=== PATIENT | male | born 1940 | race Caucasian/White ===

== ENCOUNTER → 2016-06-20 | Day surgery (SDC) | payer OTHER ==
[2016-06-15 08:50] VITALS: Ht 177.8 cm; Wt 90.0 kg
[~2016-06-20] VITALS: Ht 177.8 cm; Wt 90.0 kg
[~2016-06-20] MED LIST: 500ML BSSPLUS 0.5ML EPI1:1000 IRRIG ONE; ACETAMINOPHEN 325 MG TAB PO PRN; ALLO100T PO; AMLO-110 PO; AMLO-114 PO; ASPI81TA28 PO; ATROPINE SULFATE 0.1 MG/ML 5ML SYR IV PRN; ATROPINE SULFATE 1% OP OINT PER APPLICATION CHARGE ONE; AcetylCHOLine CHL OP SOL 1:100 2 ML BTL ONE; BSS FLUSH ONE; BUPIVACAINE HCL 0.75% 10 ML AMP/VIAL ONE; CEFAZOLIN SOD 1 GM VIAL ONE; CHOL1000 PO; DEXAMETHASONE SOD INJ 4 MG/ML VIAL ONE; EpHEDrine SULFATE INJ 50 MG/ML AMP IV PRN; EpINEphrine INJ 1MG/ML AMP 1 MG/ML AMP ONE; FAMO20TA11 PO; FENTANYL CITRATE INJ 50 MCG/1 ML 2 ML VIAL ONE; FLUMAZENIL 0.1 MG/1 ML 10 ML VIAL IV ONE; HYALURONIDASE HUMAN 150 UNIT/ML INJ ONE; INDO-24 PO; INDOCYANINE GREEN 25 MG/10 ML ONE; KFL250 PO; LACTATED RINGER'S 1000ML 500 ML IV SCH; LCTX PO; LIDOCAINE HCL 2% 2 ML VIAL (20MG/ML) ONE; LIDOCAINE MPF 4% INJ INJ ONE; LISI-787 PO; LISI10TA PO; MIDAZOLAM HCL 1 MG/ML 2ML VIAL ONE; MULT-506 PO; NEOMYCIN/POLYMYX/DEXAMETH OP OINT PER APP CHARGE ONE; OCUCOAT 1 ML SOLN IO ONE; PRD/25 PO; PRED20TA PO; PROPARACAINE 0.5% OP SOLN PER DROP CHARGE OPR SCH; PROPOFOL IV EMULSION 10 MG/ML 20 ML VIAL IV ONE; TIMOLOL MALEATE 0.5% OP SOLN PER DROP CHARGE ONE; TRAM-10 PO; TRIAMCINOLONE ACETONIDE OPHTH 40 MG/ML VIAL STERILE IO ONE; VITA1CAP4 PO
[2016-06-20] MEDS: PHENYLEPHRINE HCL 2.5% OP SOLN PER DROP CHARGE OPR SCH ×2 (07:01→07:09)
[2016-06-20] MEDS: TROPICAMIDE 1% OP SOLN PER DROP CHARGE OPR SCH ×2 (07:02→07:10)
--- NOTE | 2016-06-20 08:12 | History & Physical Bridge - SC ---
H&P Re-Evaluation Bridge Note: pt has a macular pucker in the right eye and is here for vitrectomy right eye. I have examined the patient, reviewed the History & Physical and in the interval since the performance of the History & Physical I have noted the following changes of clinical significance: No changes noted
[2016-06-20 09:53] VITALS: TEMP 36.5
--- NOTE | 2016-06-20 09:55 | [facility] Operative Report ---
Operative Report Date of Service Jun 20, 2016. Operative Report PREOPERATIVE DIAGNOSIS: Epiretinal membrane, right eye. ICD10: H35.371 POSTOPERATIVE DIAGNOSIS: same. PROCEDURE: 1. Pars plana vitrectomy, 23 gauge. 2. Membrane peeling of the internal limiting membrane and overlying epiretinal membrane. All to the right eye. CPT CODE: 89309 SURGEON: Kayden Quezada D.O. COMPLICATIONS: None. ESTIMATED BLOOD LOSS: None. SPECIMENS: None. ANESTHESIA: Retrobulbar block and MAC. INDICATIONS FOR PROCEDURE: The patient has an epiretinal membrane that is visually significant. Vitrectomy surgery is indicated to decrease risk of vision loss and potentially improve vision. CONSENT: The risks, benefits and alternatives were discussed with the patient including but not limited to decreased visual acuity, failure to achieve desired results, loss of the eye, infection, pain, glaucoma, lens changes, retinal tears, retinal detachment, the need for more procedures, drooping of the eyelid, blindness, and double vision. The patient is aware of risks and consents to the surgery. Consent is signed and on the chart. OPERATION AND FINDINGS: The patient was brought to the operating room where the patient was identified by name, date, and medical record number. The surgical site was confirmed with the informed written consent. The patient was sedated by the anesthesiology team after which a 50:50 mixture of 4% lidocaine and 0.75% bupivacaine with hyaluronidase was administered in a standard retrobulbar fashion. A total of 4 ml was administered without difficulty. The patient was then prepped and draped in the usual sterile manner for retinal surgery. A wire lid speculum was placed and an Helder 23-gauge trocar cannula system was employed. The temporal phaco wound from cataract surgery started to leak with the placement of the trocars so interrupted 10-0 nylon suture was placed in the phaco wound to stabilize it and the knots were buried. Also the infusion trocar was placed inferior nasally instead of the typical inferior temporal location. It was placed in an angled fashion 3.75mm posterior to the surgical limbus and the infusion cannula was inserted into this cannula after which the intravitreal position was verified prior to turning the infusion on. Two more trocar cannulas were then inserted in an angled fashion, one in the superior temporal, and one in the superior nasal quadrant both 3.75mm posterior to the surgical limbus. A light pipe and vitrector were then introduced into the eye and the BIOM wide angle viewing system was brought into place. Posterior inspection revealed a previously vitrectomized eye with mature laser and there was a thick epiretinal membrane over the macula. Next 0.05ml of indocyanine green was placed over the macular surface to stain the internal limiting membrane. This was washed from the eye after 10 seconds. At this point a flat contact lens was placed on the surface of the eye and a flex scraper and ILM forceps were used to gently peel the internal limiting membrane and overlying epiretinal membrane off of the macular surface without difficulty. At this point scleral depression was performed for 360 degrees and no retinal tears or detachments were noted. Miochol was instilled to make sure no iris was incarcerated in the temporal phaco wound. The trocar cannulas were then removed and 8-0 Vicryl suture was placed in the superior trocar sites. The intraocular pressure was found to be within normal limits by palpation and subconjunctival injections of Kefzol and dexamethasone were administered inferiorly and superiorly. The wire lid speculum was removed. Maxitrol was applied to the surface of the eye. A light patch and shield were taped over the surface of the eye and the patient left the Operating Room in stable condition having tolerated the procedure well. DISPOSITION: The patient has an appointment the following morning in the Ophthalmology Clinic. The patient is to call immediately if there are any problems overnight. I attest to the content of the Intraoperative Record and any orders documented therein. Any exceptions are noted below.
--- NOTE | 2016-06-20 09:55 | Discharge Instructions-SurgCtr ---
Discharge Instructions Date of Service Jun 20, 2016. Visit Reason for Visit: Right Eye Epiretinal Membrane Discharge Discharge Diagnosis / Problem: same Discharge Goals Goal(s): Improve function Activity Recommendations Activity Limitations: per Instructions/Follow-up section Anesthesia . Post Anesthesia Instructions: If you have had General Anesthesia or IV Sedation: * Do not drive today. * Resume driving when surgeon permits. * Do not make important decisions or sign legal documents today. * Call surgeon for: 1. Temperature elevations greater than 101 degrees F. 2. Uncontrollable pain. 3. Excessive bleeding. 4. Persistent nausea and vomiting. 5. Medication intolerance (nausea, vomiting or rash). * For nausea and vomiting use only clear liquids such as: tea, soda, bouillon until nausea subsides, then gradually increase diet as tolerated. * If you have any concerns or questions, call your surgeon's office. If physician is unavailable and it is an emergency, call 911 or go to the nearest emergency room. . Instructions / Follow-Up Instructions / Follow-Up * May take Tylenol if needed for discomfort. * Do NOT remove eye shield. * NO straining, heavy lifting (>15 pounds) or bending below waist. * Avoid getting water or soap directly into operative eye. * Do NOT rub eye. If you experience increasing eye pain not relieved by medication, please contact us immediately at [phone]. If you are unable to reach someone at the above number, call [phone] and ask to speak with the EYE DOCTOR [facility] CELL TENDER. Inform them that you are a Dr. Quezada patient who had recent surgery. Diet Recommendations Home Diet: resume previous diet Procedures Procedures Performed: Right Eye 23 Gauge Vitrectomy With Membrane Peeling Pending Studies Studies pending at discharge: no Medical Emergencies . Who to Call and When: Medical Emergencies: If at any time you feel your situation is an emergency, please call 911 immediately. . Non-Emergent Contact Non-Emergency issues call your: Agriculture Scientist . . "Provider Documentation" section prepared by Kayden Quezada.
--- NOTE | 2016-06-20 10:11 | Anesthesia Progress Nt - [facility] ---
Anesthesia Post Op Note Date & Time Jun 20, 2016 at 10:11 Vital Signs Pain Intensity: 0 Vital Signs Past 12 Hours Date Time Temp Pulse Resp B/P Pulse Ox O2 Delivery O2 Flow Rate FiO2 06/20/16 09:53 36.5 58 12 176/99 99 Room Air 06/20/16 06:48 36.9 64 20 172/90 98 Room Air Notes Mental Status: alert / awake / arousable, participated in evaluation Pt Amnestic to Procedure: Yes Nausea / Vomiting: adequately controlled Pain: adequately controlled Airway Patency, RR, SpO2: stable & adequate BP & HR: stable & adequate Hydration State: stable & adequate Anesthetic Complications: no major complications apparent
[2016-06-20 10:20] VITALS: BP 176/89; PULSE 68; O2SAT 98
== END | disposition home or self-care (01) ==
LOC: X.SURG 06:39
PROVIDERS: ATTEND Ophthalmology
DX: H35.371 Puckering of macula, right eye (principal); I12.9 Hypertensive chronic kidney disease with stage 1 through stage 4 chronic kidney disease, or unspecified chronic kidney disease; N18.3 Chronic kidney disease, stage 3 (moderate)

== ENCOUNTER 2016-10-19 23:44 | Emergency (ER) | payer OTHER ==
[~2016-10-19] VITALS: Ht 177.8 cm; Wt 87.0 kg
[~2016-10-19 23:44] MED LIST changes: -500ML BSSPLUS 0.5ML EPI1:1000 IRRIG ONE; -ACETAMINOPHEN 325 MG TAB PO PRN; -ALLO100T PO; -AMLO-110 PO; -AMLO-114 PO; -ATROPINE SULFATE 0.1 MG/ML 5ML SYR IV PRN; -ATROPINE SULFATE 1% OP OINT PER APPLICATION CHARGE ONE; -AcetylCHOLine CHL OP SOL 1:100 2 ML BTL ONE; -BSS FLUSH ONE; -BUPIVACAINE HCL 0.75% 10 ML AMP/VIAL ONE; -CEFAZOLIN SOD 1 GM VIAL ONE; -CHOL1000 PO; -DEXAMETHASONE SOD INJ 4 MG/ML VIAL ONE; -EpHEDrine SULFATE INJ 50 MG/ML AMP IV PRN; -EpINEphrine INJ 1MG/ML AMP 1 MG/ML AMP ONE; -FAMO20TA11 PO; -FENTANYL CITRATE INJ 50 MCG/1 ML 2 ML VIAL ONE; -FLUMAZENIL 0.1 MG/1 ML 10 ML VIAL IV ONE; -HYALURONIDASE HUMAN 150 UNIT/ML INJ ONE; -INDOCYANINE GREEN 25 MG/10 ML ONE; -KFL250 PO; -LACTATED RINGER'S 1000ML 500 ML IV SCH; -LCTX PO; -LIDOCAINE HCL 2% 2 ML VIAL (20MG/ML) ONE; -LIDOCAINE MPF 4% INJ INJ ONE; -LISI-787 PO; -MIDAZOLAM HCL 1 MG/ML 2ML VIAL ONE; -NEOMYCIN/POLYMYX/DEXAMETH OP OINT PER APP CHARGE ONE; -OCUCOAT 1 ML SOLN IO ONE; -PRD/25 PO; -PRED20TA PO; -PROPARACAINE 0.5% OP SOLN PER DROP CHARGE OPR SCH; -PROPOFOL IV EMULSION 10 MG/ML 20 ML VIAL IV ONE; -TIMOLOL MALEATE 0.5% OP SOLN PER DROP CHARGE ONE; -TRAM-10 PO; -TRIAMCINOLONE ACETONIDE OPHTH 40 MG/ML VIAL STERILE IO ONE; -VITA1CAP4 PO
[2016-10-19 23:52] VITALS: TEMP 36.7; Ht 177.8 cm; Wt 87.0 kg
--- NOTE | 2016-10-20 00:19 | EMERGENCY ROOM VISIT NOTE ---
History Report prepared by Alfredito: James Johns Under the Supervision of: Dr. Negrita Hdez D.O. First contact with patient: 00:00 Chief Complaint: ALLERGIC REACTION Stated Complaint: ALLERGIC REACTION Nursing Triage Summary: pt brought to main ED from home by BLS for allergic reaction. pt was seen at PCP today for "hoarse voice" for three weeks. started on 20mg prednisone and "acid controller" pt took these medications today at 14:30. pt began to experience swollen upper lip around 19:00. pt denies SOB or trouble swallowing. pt denies known allergies. pt has never taken prednisone before. pt is on lisinopril for HTN. upon assessment, pt is alert and oriented x4, breathing regularly and independently. lungs clear in all leal. no throat abnormailty noted. upper lip noted to be swollen, pt states "it feels numb." History of Present Illness The patient is a 76 year old male who presents to the Emergency Room with complaints of worsening swelling and numbness in his upper lip due to an allergic reaction that began at 1900, 5 hours prior to arrival. The patient states that he visited with his primary care physician today to be evaluated for a "hoarse voice" that he has had for the past three weeks. His PCP prescribed him prednisone and Acid Reflux medication. The patient notes that he took his first dosage at 1430 and another dosage at 1600 this afternoon. The swelling and numbness of the upper lip then began at roughly 1900. The patient denies any itching, and has no history of allergic reactions. He is currently on Lisinopril once per day. Source of History: patient Onset: 5 hours prior to arrival Position: lip (Upper ) Quality: other (Swelling (reaction)) Timing: worsening Associated Symptoms: + numbness ((upper lip)) Note: Patient denies itching Review of Systems See HPI for pertinent positives & negatives. A total of 10 systems reviewed and were otherwise negative. Past Medical & Surgical Medical Problems: (1) Hypertension Hypertension Family History Hypertension Kidney stones Social History Smoking Status: Never Smoker Marital Status: Housing Status: lives with significant other Occupation Status: retired Current/Historical Medications Scheduled Allopurinol (Zyloprim), 100 MG PO DAILY Amlodipine (Norvasc), 5 MG PO DAILY Aspirin (Aspirin Ec), 81 MG PO QAM Cholecalciferol (Vitamin D3), 1,000 UNITS PO DAILY Famotidine (Pepcid), 20 MG PO BID Lisinopril/Hctz (Zestoretic 20MG/12.5MG), 1 TAB PO DAILY Multivitamin (Multivitamin), 1 TAB PO QAM Prednisone (Prednisone), 20 MG PO DAILY/UD Allergies Coded Allergies: No Known Allergies (Verified , 06/20/16) Physical Exam Vital Signs Date Time Temp Pulse Resp B/P (MAP) Pulse Ox O2 Delivery O2 Flow Rate FiO2 10/20/16 02:22 67 18 120/73 96 10/20/16 01:52 68 18 163/88 95 Room Air 10/19/16 23:57 81 10/19/16 23:52 36.7 84 18 163/88 97 Room Air 10/19/16 23:52 97 Room Air Physical Exam HEENT: Head - normocephalic and atraumatic Pupils are equal, round, and reactive to light. Extraocular eye muscles are intact, and sclera are anicteric. Nose - moist nasal mucosa without discharge. Mouth - The patient' s upper lip was swollen, left being larger than the right. moist buccal mucosa. Oropharynx is nonerythematous and there is no tonsillar exudate or edema noted. There is no uvular edema. Neck: Supple; no auscultated stridor. Heart: Regular rate and rhythm. There is a normal S1 and S2 with no murmurs, clicks, or gallops appreciated. Lungs: Clear to auscultation bilaterally with no wheezes, rales, or rhonchi. Abdomen: Soft, completely nontender, nondistended, with good bowel sounds. There are no palpable pulsatile masses or hepatosplenomegaly. There is no guarding, rigidity, or rebound noted. Extremities: No evidence of cyanosis, clubbing, or edema. There are easily palpable peripheral pulses. Skin: warm and dry with good turgor and no rashes. Medical Decision & Procedures Medications Administered Medications (Trade) Dose Ordered Sig/Radha Route Start Time Stop Time Status Last Admin Dose Admin Diphenhydramine HCl (Benadryl Cap) 50 mg NOW ONCE PO 10/20/16 00:30 10/20/16 00:31 DC 10/20/16 00:31 50 MG Procedure Medications Ordered: Benadryl ED Course 0007: Past medical records reviewed. The patient was evaluated in room B8. A complete history and physical exam was performed. 0030: Ordered Benadryl 50 mg PO. An ice pack was applied to the upper lip. 0154: Upon reevaluation, the patient is comfortable in bed, he feels as though the swelling in his lip has receded slightly. I discussed findings and results with him. He verbalized agreement of the treatment plan. The patient was discharged home. Medical Decision The patient is a 76 year old male who presents to the Emergency Department for upper lip swelling and numbness. Differential Diagnosis includes; angioedema, drug reactions, and allergic reaction. Blood Pressure Screening: Patient was found to have a slightly elevated blood pressure due to circumstances. I attest that I have personally reviewed the patient's current medication list. This is a 76 showed male patient who presents emergency Department with swelling to his upper lip. It seems the patient is suffering from acute angioedema most likely secondary to his lisinopril. The initial symptoms he experienced earlier today may have been secondary to the start of angioedema. I 've encouraged the patient to stop taking the LANDY inhibitor and follow up with his PCP with regards to blood pressure control. As for the prednisone, he can continue this and may also use Benadryl. He was instructed that if he developed any worsening swelling to his lips or tongue that he should return to the emergency department. Impression Primary Impression: Angioedema Scribe Attestation The scribe's documentation has been prepared under my direction and personally reviewed by me in its entirety. I confirm that the note above accurately reflects all work, treatment, procedures, and medical decision making performed by me. Departure Information Dispostion Home / Self-Care Referrals Luisito Smith M.D. (PCP) Forms HOME CARE DOCUMENTATION FORM, IMPORTANT VISIT INFORMATION Patient Instructions My [facility] Additional Instructions Stop the Lisinopril Rest with your head elevated Benadryl - 50mg every 6 hours today You can continue steroids Follow up with PCP about blood pressure
[2016-10-20] MEDS ORDERED: FAMO20TA11 PO (00:54)
[2016-10-20] MEDS ORDERED: ALLO100T PO (00:55)
[2016-10-20] MEDS ORDERED: AMLO-110 PO (00:56)
[2016-10-20] MEDS ORDERED: LISI-787 PO (00:57)
[2016-10-20] MEDS ORDERED: CHOL1000 PO (00:58)
[2016-10-20] MEDS ORDERED: PRED20TA PO (00:59)
[2016-10-20 02:22] VITALS: BP 120/73; PULSE 67; O2SAT 96
[2016-11-11] MEDS ORDERED: PRD/25 PO (18:37)
[2016-11-12] MEDS ORDERED: KFL250 PO (12:06)
[2016-11-12] MEDS ORDERED: LCTX PO (12:06)
[2016-11-17] MEDS ORDERED: VITA1CAP4 PO (08:53)
[2016-11-17] MEDS ORDERED: TRAM-10 PO (08:53)
== END 2016-10-20 02:22 | disposition home or self-care (01) ==
LOC: EDBD 23:44 → C.EDB 23:45
DX: T78.3XXA Angioneurotic edema, initial encounter (principal); X58.XXXA Exposure to other specified factors, initial encounter; I10 Essential (primary) hypertension; Z79.82 Long term (current) use of aspirin; Z82.49 Family history of ischemic heart disease and other diseases of the circulatory system; Z84.1 Family history of disorders of kidney and ureter

== ENCOUNTER 2016-11-09 10:50 | Observation (INO) | payer OTHER ==
[~2016-11-09] VITALS: Ht 177.8 cm; Wt 81.0 kg
[~2016-11-09 10:50] MED LIST changes: +ALLO100T PO; +AMLO-110 PO; +CHOL1000 PO; +FAMO20TA11 PO; -INDO-24 PO; +LISI-787 PO; -LISI10TA PO; +PRED20TA PO
[2016-11-09] MEDS ORDERED: SODIUM CHLORIDE 0.9% 1000ML 1,000 ML IV STA (11:12)
--- NOTE | 2016-11-09 11:21 | EMERGENCY ROOM VISIT NOTE ---
History First contact with patient: 11:06 Chief Complaint: FOOT PAIN Stated Complaint: SWOLLEN RIGHT FOOT History of Present Illness The patient is a 76 year old male who presents to the Emergency Room for evaluation of right foot swelling. Notes 3 days increasing right foot swelling , pain and erythema. Associated with fevers and not feeling well. No other symptoms. Nothing makes better. Walking makes pain worse. No calf, knee pain. Notes chronic right hip pain. No history of dvt pe. No recent antibiotics. Recently changed from lisinopril to amlodipine secondary to angioedema episode. No recent antibiotics. Notes history of gout though states this is unlike previous gout. He was seen by PCP this morning who advised ED visit for evaluation of sepsis. Review of Systems See HPI for pertinent positives & negatives. A total of 8 systems reviewed and were otherwise negative. 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 Surgical Problems: (1) H/O eye surgery (2) H/O inguinal hernia repair (3) History of cataract surgery (4) History of total left hip arthroplasty Family History Hypertension Kidney stones Social History Smoking Status: Never Smoker Marital Status: Housing Status: lives with significant other Occupation Status: retired Current/Historical Medications Scheduled Allopurinol (Zyloprim), 100 MG PO DAILY Amlodipine (Norvasc), 10 MG PO DAILY Aspirin (Aspirin Ec), 81 MG PO QAM Cholecalciferol (Vitamin D3), 1,000 UNITS PO DAILY Famotidine (Pepcid), 20 MG PO BID Multivitamin (Multivitamin), 1 TAB PO QAM Physical Exam Vital Signs Date Time Temp Pulse Resp B/P (MAP) Pulse Ox O2 Delivery O2 Flow Rate FiO2 11/09/16 14:00 72 129/79 95 11/09/16 12:37 68 138/76 95 11/09/16 10:55 37.4 95 18 137/78 96 Room Air Physical Exam GENERAL: Patient is well appearing and in mild distress. HEENT: No acute trauma, normocephalic atraumatic, mucous membranes moist, no nasal congestion, no scleral icterus. NECK: No stridor, no adenopathy, no meningismus, trachea is midline. LUNGS: No dyspnea. Clear to auscultation and equal bilaterally. No wheeze, no rhonchi. HEART: Regular rate and rhythm. No murmurs, rubs, gallops appreciated. ABDOMEN: Soft, nontender, bowel sounds positive, no masses appreciated, no peritonitis. BACK: No midline tenderness, no CVA tenderness EXTREMITIES: Significant swelling/edema to right foot extending to ankle with overlying erythema, specifically great toe and lateral right foot. Calf non- tender no calf pain with ankle ROM. Pain with ROM great toe though no severe pain. Otherwise normal motion all extremities, no cyanosis, no edema. NEUROLOGIC: Alert and oriented, no acute motor or sensory deficits, no focal weakness, cranial nerves grossly intact. SKIN: No rash, no jaundice, no diaphoresis. Medical Decision & Procedures Laboratory Results 11/09/16 11:25 Red Blood Count 3.84, Mean Corpuscular Volume 91.1, Mean Corpuscular Hemoglobin 31.5, Mean Corpuscular Hemoglobin Concent 34.6, Mean Platelet Volume 9.6, Neutrophils (%) (Auto) 80.1, Lymphocytes (%) (Auto) 8.9, Monocytes (%) (Auto) 10.5, Eosinophils (%) (Auto) 0.1, Basophils (%) (Auto) 0.1, Neutrophils # (Auto ) 5.41, Lymphocytes # (Auto) 0.60, Monocytes # (Auto) 0.71, Eosinophils # (Auto ) 0.01, Basophils # (Auto) 0.01 11/09/16 11:25 Test 11/09/16 11:25 11/09/16 11:34 White Blood Count 6.76 K/uL (4.8-10.8) Red Blood Count 3.84 M/uL (4.7-6.1) Hemoglobin 12.1 g/dL (14.0-18.0) Hematocrit 35.0 % (42-52) Mean Corpuscular Volume 91.1 fL (80-100) Mean Corpuscular Hemoglobin 31.5 pg (25-34) Mean Corpuscular Hemoglobin Concent 34.6 g/dl (32-36) Platelet Count 166 K/uL (130-400) Mean Platelet Volume 9.6 fL (7.4-10.4) Neutrophils (%) (Auto) 80.1 % Lymphocytes (%) (Auto) 8.9 % Monocytes (%) (Auto) 10.5 % Eosinophils (%) (Auto) 0.1 % Basophils (%) (Auto) 0.1 % Neutrophils # (Auto) 5.41 K/uL (1.4-6.5) Lymphocytes # (Auto) 0.60 K/uL (1.2-3.4) Monocytes # (Auto) 0.71 K/uL (0.11-0.59) Eosinophils # (Auto) 0.01 K/uL (0-0.5) Basophils # (Auto) 0.01 K/uL (0-0.2) RDW Standard Deviation 46.0 fL (36.4-46.3) RDW Coefficient of Variation 13.8 % (11.5-14.5) Immature Granulocyte % (Auto) 0.3 % Immature Granulocyte # (Auto) 0.02 K/uL (0.00-0.02) Anion Gap 7.0 mmol/L (3-11) Est Creatinine Clear Calc Drug Dose 36.0 ml/min Estimated GFR () 41.4 Estimated GFR (Non- 35.8 BUN/Creatinine Ratio 14.2 (10-20) Uric Acid 4.7 mg/dl (2.6-7.2) Calcium Level 9.3 mg/dl (8.5-10.1) C-Reactive Protein 17.90 mg/dl (0-0.29) Bedside Lactic Acid Venous 1.39 mmol/L (0.90-1.70) Medications Administered Medications (Trade) Dose Ordered Sig/Radha Route Start Time Stop Time Status Last Admin Dose Admin Sodium Chloride 1,000 ml @ 75 mls/hr [id number] STAT IV 11/09/16 11:12 11/10/16 00:31 11/09/16 11:42 75 MLS/HR Ceftriaxone Sodium (Rocephin Inj) 1 gm NOW STAT IV 11/09/16 13:28 11/09/16 13:29 DC 11/09/16 13:50 1 GM Vancomycin HCl 1600 mg/Sodium Chloride 532 ml @ 200 mls/hr ONE STAT IV 11/09/16 13:28 11/09/16 16:07 11/09/16 14:24 200 MLS/HR Oxycodone HCl (Roxicodone Immediate Rel Tab) 5 mg NOW STAT PO 11/09/16 14:11 11/09/16 14:13 DC 11/09/16 14:23 5 MG Medical Decision Differential: Cellulitis, Osteo, Gout, Fracture, Dislocation, Septic Joint, Ligamentous Injury, Effusion, DVT, amongst other pathologies entertained. 76 yr old male arrives from PCP for evaluation of right leg swelling and fever. Consistent with infection though could be just severe gout (which he states it is not like previous gout). WBC and Lactate OK. Blood cultures obtained. CRP significantly elevated consistent with inflammatory state. Denies diabetes nor infectious issues previously. He is stable here other than rash has started spreading up leg while here including increased swelling. US ordered with no DVT noted. Given IV rocephin/vanc. Discussed pros/cons of staying vs discharge and he does not feel comfortable with monitoring this at home, especially given it is so swollen and painful that he is unable to walk without severe pain. Medication Reconcilliation Current Medication List: was personally reviewed by me Blood Pressure Screening Patient's blood pressure: Normal blood pressure Impression Primary Impression: Cellulitis of right foot Departure Information Referrals Luisito Smith M.D. (PCP) Patient Instructions My [facility]
[2016-11-09] MEDS ORDERED: AMLO-114 PO (11:24)
[2016-11-09 11:45] LABS: BASO % 0.1 %; BASO ABS # 0.01 K/uL (0-0.2); COMPLETE YES; EOS % 0.1 %; IG% 0.3 %; LYMPH % 8.9 %; MEAN CELL VOLUME 91.1 fL (80-100); MEAN CORPUSCULAR HEMOGLOBIN 31.5 pg (25-34); MEAN CORPUSCULAR HGB CONC 34.6 g/dl (32-36); MEAN PLATELET VOLUME 9.6 fL (7.4-10.4); MONO % 10.5 %; NEUT % 80.1 %; PLATELET COUNT 166 K/uL (130-400); RED BLOOD COUNT 3.84 M/uL (4.7-6.1); WHITE BLOOD COUNT 6.76 K/uL (4.8-10.8)
[2016-11-09 12:01] LABS: BUN/CREATININE RATIO 14.2 (10-20); C-REACTIVE PROTEIN 17.9 mg/dl (0-0.29); CALCIUM 9.3 mg/dl (8.5-10.1); CREATININE 1.8 mg/dl (0.60-1.40); URIC ACID 4.7 mg/dl (2.6-7.2)
--- NOTE | 2016-11-09 12:23 | DIAGNOSTIC IMAGING REPORT ---
RIGHT FOOT 3 VIEWS CLINICAL HISTORY: Right foot swelling and erythema. FINDINGS: 3 views of the right foot are obtained. No prior studies are available for comparison at the time of dictation. The skeletal structures are osteopenic. No fracture is seen. Arthritic change is present at the first metatarsophalangeal joint. Degenerative spurring is seen along the dorsal aspect of the tarsal bones. There is a plantar calcaneal enthesophyte. Soft tissue edema is present throughout the foot. There is atherosclerotic calcification of the regional arteries. IMPRESSION: 1. Soft tissue edema with no acute bony abnormality seen in the right foot. 2. Osteopenia with arthritic change and heel spur as above. Electronically signed by: Marvin Chavez M.D. 11/09/2016 12:22 PM Dictated Date/Time: 11/09/2016 12:20 PM
--- NOTE | 2016-11-09 13:15 | DIAGNOSTIC IMAGING REPORT ---
RIGHT VENOUS DOPP LOWER EXT UNILAT CLINICAL HISTORY: 76 years-old Male presenting with foot, ankle, lower leg swelling Right. TECHNIQUE: Real-time grayscale and color and spectral Doppler ultrasound imaging of the veins of the right lower extremity was performed. Compression and augmentation were also utilized. COMPARISON: None. FINDINGS: Right: Common femoral vein: Patent. Femoral vein: Patent. Greater saphenous vein: Patent. Popliteal vein: Patent. Calf veins: Patent. Other: None. IMPRESSION: No evidence of deep venous thrombosis. Electronically signed by: Andre Aponte M.D. 11/09/2016 1:14 PM Dictated Date/Time: 11/09/2016 1:13 PM
[2016-11-09] MEDS ORDERED: CEFTRIAXONE SOD INJ 1 GM ADDVIAL IV STA (13:28)
[2016-11-09] MEDS ORDERED: VANCOMYCIN INJ 1,600 MG in SODIUM CHLORIDE 0.9% 500ML 500 ML IV STA (13:28)
[2016-11-09] MEDS ORDERED: OXYCODONE HCL IR 5 MG TAB (IMMEDIATE RELEASE) PO STA (14:11)
[2016-11-09] MEDS ORDERED: ONDANSETRON INJ 2 MG/ML 2 ML VIAL IV PRN (15:15)
[2016-11-09] MEDS ORDERED: IV FLUIDS COMPLETED PRN (15:45)
--- NOTE | 2016-11-09 15:47 | History and Physical ---
History & Physical Date & Time of Service: Nov 09, 2016 at 15:47 Chief Complaint: Swollen Right Foot Primary Care Physician: Aziza Patterson History of Present Illness Source: patient This is a 76yo M with a PMH of gout, HTN, CKD III who presents with right foot swelling over the past 4 days. States that he started to notice redness around his R great toe on Monday, which progressed to redness, swelling, warmth and pain of entire R foot and ankle by today. Associated symptoms included fever and chills as well as difficulty with ambulation (started to require a cane). Went to PCP and was redirected to the ED for infectious work-up. Currently endorses pain to touch of joints in R toe and ankle but denies fever, chills, lightheadedness, confusion, CP, SOB or calf pain. Recently presented to ED for an angioedema episode 2/2 lisinopril use and was switched to amlodipine. Has a history of gout in his R great toe but states that this pain is much more severe and involves more of his foot and ankle. No h/o DVTs. During time in ED, physician noted that swelling and redness spread from R foot/ ankle up patient's R leg. Started on ceftriaxone/vanc for empiric coverage. 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 Surgical Problems: (1) H/O eye surgery Status: Chronic (2) H/O inguinal hernia repair Status: Chronic (3) History of cataract surgery Status: Chronic (4) History of total left hip arthroplasty Status: Chronic Family History Hypertension Kidney stones Stroke FATHER MOTHER Social History Smoking Status: Never Smoker Marital Status: Occupational Status: retired Immunizations History of Influenza Vaccine: No History of Tetanus Vaccine?: Yes History of Pneumococcal: Yes History of Hepatitis B Vaccine: No Multi-Drug Resistant Organisms History of MDRO: No Allergies Coded Allergies: No Known Allergies (Verified , 06/20/16) Home Medications Scheduled Allopurinol (Zyloprim), 100 MG PO DAILY Amlodipine (Norvasc), 10 MG PO DAILY Aspirin (Aspirin Ec), 81 MG PO QAM Cholecalciferol (Vitamin D3), 1,000 UNITS PO DAILY Famotidine (Pepcid), 20 MG PO BID Multivitamin (Multivitamin), 1 TAB PO QAM Review of Systems Ten systems reviewed and negative except as noted in the HPI. Physical Exam Vital Signs Date Time Temp Pulse Resp B/P (MAP) Pulse Ox O2 Delivery O2 Flow Rate FiO2 11/09/16 14:00 72 129/79 95 11/09/16 12:37 68 138/76 95 11/09/16 10:55 37.4 95 18 137/78 96 Room Air General Appearance: WD/WN, no apparent distress Head: normocephalic, atraumatic Eyes: normal inspection, sclerae normal ENT: normal ENT inspection, hearing grossly normal Neck: supple, no adenopathy, thyroid normal, trachea midline Respiratory/Chest: chest non-tender, lungs clear, normal breath sounds, no respiratory distress, no accessory muscle use Cardiovascular: regular rate, rhythm, no edema, no gallop, no JVD, no murmur, normal peripheral pulses Abdomen/GI: normal bowel sounds, non tender, soft, no organomegaly Back: normal inspection Extremities/Musculoskelatal: no calf tenderness, normal capillary refill, + inflammation, + swelling, + pertinent finding (Presence of erythema and edema of R great toe, foot and bilateral ankles with trace erythema and edema noted in R LE below knee. Warm to touch. TTP. Limited ROM of toes and ankle 2/2 pain. No abnormalities noted of L LE. Toenails thickened and yellow.) Neurologic/Psych: no motor/sensory deficits, alert, normal mood/affect, normal reflexes, oriented x 3 Skin: normal color, warm/dry Lymphatic: no adenopathy Diagnostics Laboratory Results Results Past 24 Hours Test 11/09/16 11:25 11/09/16 11:34 Range/Units White Blood Count 6.76 4.8-10.8 K/uL Red Blood Count 3.84 4.7-6.1 M/uL Hemoglobin 12.1 14.0-18.0 g/dL Hematocrit 35.0 42-52 % Mean Corpuscular Volume 91.1 80-100 fL Mean Corpuscular Hemoglobin 31.5 25-34 pg Mean Corpuscular Hemoglobin Concent 34.6 32-36 g/dl Platelet Count 166 130-400 K/uL Mean Platelet Volume 9.6 7.4-10.4 fL Neutrophils (%) (Auto) 80.1 % Lymphocytes (%) (Auto) 8.9 % Monocytes (%) (Auto) 10.5 % Eosinophils (%) (Auto) 0.1 % Basophils (%) (Auto) 0.1 % Neutrophils # (Auto) 5.41 1.4-6.5 K/uL Lymphocytes # (Auto) 0.60 1.2-3.4 K/uL Monocytes # (Auto) 0.71 0.11-0.59 K/uL Eosinophils # (Auto) 0.01 0-0.5 K/uL Basophils # (Auto) 0.01 0-0.2 K/uL RDW Standard Deviation 46.0 36.4-46.3 fL RDW Coefficient of Variation 13.8 11.5-14.5 % Immature Granulocyte % (Auto) 0.3 % Immature Granulocyte # (Auto) 0.02 0.00-0.02 K/uL Sodium Level 134 136-145 mmol/L Potassium Level 4.0 3.5-5.1 mmol/L Chloride Level 101 98-107 mmol/L Carbon Dioxide Level 26 21-32 mmol/L Anion Gap 7.0 3-11 mmol/L Blood Urea Nitrogen 26 7-18 mg/dl Creatinine 1.80 0.60-1.40 mg/dl Est Creatinine Clear Calc Drug Dose 36.0 ml/min Estimated GFR () 41.4 Estimated GFR (Non- 35.8 BUN/Creatinine Ratio 14.2 10-20 Random Glucose 119 70-99 mg/dl Uric Acid 4.7 2.6-7.2 mg/dl Calcium Level 9.3 8.5-10.1 mg/dl C-Reactive Protein 17.90 0-0.29 mg/dl Bedside Lactic Acid Venous 1.39 0.90-1.70 mmol/L Microbiology Results 11/09/16 Blood Culture, Received Pending 11/09/16 Blood Culture, Received Pending Diagnostic Radiology R Foot XR (11/09/16): IMPRESSION: 1. Soft tissue edema with no acute bony abnormality seen in the right foot. 2. Osteopenia with arthritic change and heel spur as above. Lower Ext U/S: No evidence of DVT. Impression Assessment and Plan This is a 76yo M with a PMH of gout, HTN, CKD III who presents with right foot swelling, redness and pain over the past 4 days. Cellulitis of R foot, great toe: -Ddx: cellulitis vs. gouty flare vs. DVT vs. s/e of amlodipine -Work up: No leukocytosis, afebrile. Normal lactic acid. Uric acid normal. Foot XR with soft tissue swelling. Lower ext U/S negative for DVT. Blood cx pending. -Considered gout flare but unable to give NSAIDs because of CKD and don't want to give prednisone at this point due to risk of worsening infection. -Considered DVT but lower ext U/S is negative for DVT. No tachycardia/ tachypnea. -Does not present clinically like edema 2/2 amlodipine. -Most likely cellulitis due to presentation and history. Toenails look like potential source of infection. -Received dose of ceftriaxone/vanc in ED. -Started on Clindamycin for soft tissue coverage. Cultures pending. Probiotics given concurrently. -On Tylenol and home dose of tramadol for pain coverage -Repeat CBC in AM HTN: stable -Continue amlodipine Gout: -Continue allopurinol -Will consider treating a gout flare with prednisone once cellulitis resolves DVT Ppx: heparin Code status: FULL PCP: [facility] Dispo: Plan to return home once medically stable Attending addendum: Agree with the above H&P; please refer to above for more details. Patient presented to the ER after being seen by his PCP for worsening right foot pain, swelling and erythema. Reports most of his pain is in the joints of his right foot. It has progressed over the last few days to the extent that he has difficulty ambulating and began using a cane and then a wheelchair. He reports subjective fevers and chills as well. Denies any injury to his right foot. States he used to have gout attacks in his right great toe however he has not had one in over 20 years. Cardiac: RR, S1 and S2 auscultated Resp: CTA B/L GI: soft, NT, ND, +BS MSK: right foot erythema and edema up to the mid right knapp; erythema and swelling most predominant in the first 2 toes RIGHT FOOT/TOE CELLULITIS: -was given ceftriaxone + vanco -obtain MRSA screen -can start with IV clinda and monitor for improvement -blood cultures pending -no evidence of sepsis -could have underlying gout, however joint aspiration would not be done at this time with overlying skin infection; could consider short course of prednisone if the pain and symptoms are not improving. Could also consider limited doses of colchicine due to renal impairment Level of Care Med/Surg Resuscitation Status FULL RESUSCITATION VTE Prophylaxis VTE Risk Assessment Done? Y/N: Yes Risk Level: Moderate Given or contraindicated: Unfractionated heparin SQ Social Service Consult None Apply
[2016-11-09 16:50] VITALS: BP 133/71; PULSE 82; TEMP 36.9; O2SAT 97
[2016-11-09] MEDS ORDERED: SODIUM CHLORIDE 0.9% 1000ML 1,000 ML IV ONE (17:00)
[2016-11-09 17:30] VITALS: BP 133/71; PULSE 82; TEMP 36.9; O2SAT 97; Ht 177.8 cm; Wt 81.0 kg
[2016-11-09] MEDS: LACTOBACILLUS ACIDOPHILUS (FLORANEX) TAB PO SCH (17:47)
[2016-11-09] MEDS: CLINDAMYCIN IV 900 MG in DEXTROSE 5% 100ML 100 ML IV SCH (18:03)
[2016-11-09 18:24] LABS: INR 1.1 (0.9-1.1); PROTHROMBIN TIME (PATIENT) 11.7 SECONDS (9.0-12.0)
[2016-11-09] MEDS: FAMOTIDINE 20 MG TAB PO SCH (20:52)
[2016-11-09] MEDS: HEPARIN SOD 5000 UNIT/0.5 ML CARP SQ SCH (20:54)
[2016-11-10] VITALS: BP 106/63; PULSE 79; TEMP 38; O2SAT 95
[2016-11-10] MEDS: ACETAMINOPHEN 325 MG TAB PO PRN ×2 (00:16→09:10)
[2016-11-10] MEDS: CLINDAMYCIN IV 900 MG in DEXTROSE 5% 100ML 100 ML IV SCH ×3 (02:20→17:46)
[2016-11-10 06:14] LABS: HEMATOCRIT 29.4 % (42-52); MEAN CELL VOLUME 91.6 fL (80-100); MEAN CORPUSCULAR HEMOGLOBIN 32.7 pg (25-34); MEAN CORPUSCULAR HGB CONC 35.7 g/dl (32-36); PLATELET COUNT 151 K/uL (130-400); RED BLOOD COUNT 3.21 M/uL (4.7-6.1)
[2016-11-10 06:46] LABS: BUN/CREATININE RATIO 13.4 (10-20); CALCIUM 8.6 mg/dl (8.5-10.1); CREATININE 1.6 mg/dl (0.60-1.40); POTASSIUM 3.9 mmol/L (3.5-5.1)
[2016-11-10 07:35] VITALS: BP 104/56; PULSE 67; TEMP 37.4; O2SAT 96
[2016-11-10] MEDS ORDERED: AMLODIPINE BESYLATE 5 MG TAB PO SCH (08:00)
[2016-11-10] MEDS: ASPIRIN 81 MG ECTAB PO SCH (09:02)
[2016-11-10] MEDS: ALLOPURINOL 100 MG TAB PO SCH (09:04)
[2016-11-10] MEDS: CHOLECALCIFEROL 1000 INTER.UNIT TAB PO SCH (09:05)
[2016-11-10] MEDS: FAMOTIDINE 20 MG TAB PO SCH ×2 (09:05→19:49)
[2016-11-10] MEDS: LACTOBACILLUS ACIDOPHILUS (FLORANEX) TAB PO SCH ×3 (09:05→17:46)
[2016-11-10] MEDS: MULTIVITAMIN TAB PO SCH (09:05)
[2016-11-10] MEDS: HEPARIN SOD 5000 UNIT/0.5 ML CARP SQ SCH ×2 (09:20→19:56)
[2016-11-10 15:58] VITALS: BP 119/71; PULSE 63; TEMP 36.9; O2SAT 92
--- NOTE | 2016-11-10 18:41 | Progress Note ---
Internal Med Progress Note Date of Service: Nov 10, 2016. Provider Documentation: SUBJECTIVE: mentions the swelling and redness in rt lower ext improved erythema and redness just involving feet and toes now ( was up to his knee on admission ) no fever or chills still can not bear wt on rt leg /foot due to pain OBJECTIVE: Vital Signs-as noted below Exam: General-no sign of discomfort Eyes-sclera non icteric ENT-NAD Neck-no JVD Lungs-CTA , no wheeze or rales Heart-regular s1/S2 Abdomen-soft, non tender Extremities-rt lower ext -foot still has significant erythema , warmth , redness on Rt great toe , tender to touch Neuro-no focal deficit Lab data as noted below. ASSESSMENT & PLAN: Cellulitis of R foot, -Ddx: cellulitis vs. gouty flare vs. -Work up: No leukocytosis, afebrile. Normal lactic acid. Uric acid normal. Foot XR with soft tissue swelling. Lower ext U/S negative for DVT. -Most likely cellulitis due to presentation and history. Toenails look like potential source of infection. -Started on Clindamycin for soft tissue coverage. clinically improving ordered for Lyme titer HTN: stable -hold amlodipine for lower ext edema HX OF Gout: -Continue allopurinol -po Prednisone ordered for possible gout flare of rt great toe DVT Ppx: heparin Code status: FULL DISPOSITION Discharge home when medically stable Vital Signs: Date Time Temp Pulse Resp B/P (MAP) Pulse Ox O2 Delivery O2 Flow Rate FiO2 11/10/16 15:58 36.9 63 18 119/71 (87) 92 Room Air 11/10/16 15:17 Room Air 11/10/16 09:10 Room Air 11/10/16 07:35 37.4 67 18 104/56 (72) 96 Room Air 11/10/16 00:00 38.0 79 20 106/63 (77) 95 Room Air 11/10/16 00:00 95 Room Air Lab Results: Results Past 24 Hours Test 11/10/16 05:44 Range/Units White Blood Count 6.00 4.8-10.8 K/uL Red Blood Count 3.21 4.7-6.1 M/uL Hemoglobin 10.5 14.0-18.0 g/dL Hematocrit 29.4 42-52 % Mean Corpuscular Volume 91.6 80-100 fL Mean Corpuscular Hemoglobin 32.7 25-34 pg Mean Corpuscular Hemoglobin Concent 35.7 32-36 g/dl RDW Standard Deviation 45.8 36.4-46.3 fL RDW Coefficient of Variation 13.7 11.5-14.5 % Platelet Count 151 130-400 K/uL Mean Platelet Volume 10.0 7.4-10.4 fL Sodium Level 137 136-145 mmol/L Potassium Level 3.9 3.5-5.1 mmol/L Chloride Level 104 98-107 mmol/L Carbon Dioxide Level 29 21-32 mmol/L Anion Gap 4.0 3-11 mmol/L Blood Urea Nitrogen 22 7-18 mg/dl Creatinine 1.60 0.60-1.40 mg/dl Est Creatinine Clear Calc Drug Dose 40.6 ml/min Estimated GFR () 47.8 Estimated GFR (Non- 41.2 BUN/Creatinine Ratio 13.4 10-20 Random Glucose 91 70-99 mg/dl Calcium Level 8.6 8.5-10.1 mg/dl Microbiology Results 11/09/16 MRSA DNA Surveillance Screen - Final, Complete Specimen Negative for MRSA by DNA Probe
[2016-11-10 23:48] VITALS: BP 140/69; PULSE 77; TEMP 37.6; O2SAT 95
[2016-11-11] MEDS: ACETAMINOPHEN 325 MG TAB PO PRN ×4 (00:01→20:39)
[2016-11-11] MEDS: CLINDAMYCIN IV 900 MG in DEXTROSE 5% 100ML 100 ML IV SCH ×3 (02:03→17:43)
[2016-11-11 07:56] VITALS: BP 113/70; PULSE 81; TEMP 36.9; O2SAT 93
[2016-11-11] MEDS: LACTOBACILLUS ACIDOPHILUS (FLORANEX) TAB PO SCH ×3 (08:58→17:43)
[2016-11-11] MEDS: ALLOPURINOL 100 MG TAB PO SCH (08:59)
[2016-11-11] MEDS: FAMOTIDINE 20 MG TAB PO SCH ×2 (08:59→20:37)
[2016-11-11] MEDS: ASPIRIN 81 MG ECTAB PO SCH (08:59)
[2016-11-11] MEDS: MULTIVITAMIN TAB PO SCH (08:59)
[2016-11-11] MEDS: CHOLECALCIFEROL 1000 INTER.UNIT TAB PO SCH (09:00)
[2016-11-11] MEDS: HEPARIN SOD 5000 UNIT/0.5 ML CARP SQ SCH ×2 (09:12→20:39)
[2016-11-11 15:58] VITALS: BP 116/64; PULSE 75; TEMP 36.9; O2SAT 97
--- NOTE | 2016-11-11 16:24 | Discharge Instructions ---
Discharge Instructions Date of Service Nov 11, 2016. Admission Reason for Admission: Cellulitis Of Right Foot Discharge Discharge Diagnosis / Problem: CELLULITIS OF RIGHT FOOT /ACUTE GOUTY ARTHRITIS Discharge Goals Goal(s): Decrease discomfort, Improve disease control, Therapeutic intervention Activity Recommendations Activity Limitations: resume your previous activity . Instructions / Follow-Up Instructions / Follow-Up HOSPITAL FOLLOW UP : 11/15/2016 3:00 PM Luisito Smith MD Internal Medicine [facility] Current Hospital Diet Patient's current hospital diet: Renal Diet, Low Sodium Diet (2gm Na) Discharge Diet Recommended Diet: Low Sodium Diet (2gm Na) Pending Studies Studies pending at discharge: no Medical Emergencies . Who to Call and When: Medical Emergencies: If at any time you feel your situation is an emergency, please call 911 immediately. . Non-Emergent Contact Non-Emergency issues call your: Primary Care Provider . . "Provider Documentation" section prepared by Kim Patterson. . VTE Core Measure Inpt VTE Proph given/why not?: Unfractionated heparin SQ
[2016-11-11] MEDS ORDERED: PRD/25 PO (18:37)
--- NOTE | 2016-11-11 18:40 | Progress Note ---
Internal Med Progress Note Date of Service: Nov 11, 2016. Provider Documentation: SUBJECTIVE: rt foot swelling and redness improved markedly less tenderness ambulate to walk with minimum discomfort OBJECTIVE: Vital Signs-as noted below Exam: General-no sign of discomfort Eyes-sclera non icteric ENT-NAD Neck-no JVD Lungs-CTA , no wheeze or rales Heart-regular s1/S2 Abdomen-soft, non tender Extremities-rt lower ext -foot still has significant erythema , warmth , redness on Rt great toe , tender to touch Neuro-no focal deficit Lab data as noted below. ASSESSMENT & PLAN: Cellulitis of R foot, -Ddx: cellulitis vs. gouty flare vs. -Work up: No leukocytosis, afebrile. Normal lactic acid. Uric acid normal. Foot XR with soft tissue swelling. Lower ext U/S negative for DVT. clinically much improved will D/c Clindamycin PO keflex 3 more days HTN: stable -d/c amlodipine for lower ext edema HX OF Gout: -Continue allopurinol -started on po Prednisone with significant improvement of rt great toe tenderness and erythema cont on oral prednisone will be discharged on taper DVT Ppx: heparin Code status: FULL DISPOSITION possible Discharge home tomorrow Vital Signs: Date Time Temp Pulse Resp B/P (MAP) Pulse Ox O2 Delivery O2 Flow Rate FiO2 11/11/16 16:00 Room Air 11/11/16 15:58 36.9 75 18 116/64 (81) 97 Room Air 11/11/16 09:00 Room Air 11/11/16 07:56 36.9 81 18 113/70 (84) 93 Room Air 11/11/16 00:00 Room Air 11/10/16 23:48 37.6 77 20 140/69 (92) 95 Room Air 11/10/16 20:00 Room Air
[2016-11-11] MEDS: CEPHALEXIN MONOHYDRATE 250 MG CAP PO SCH (20:36)
[2016-11-11 23:57] VITALS: BP 129/75; PULSE 72; TEMP 36.8; O2SAT 95
[2016-11-12] MEDS ORDERED: CEPHALEXIN MONOHYDRATE 250 MG CAP PO SCH
[2016-11-12] MEDS: ACETAMINOPHEN 325 MG TAB PO PRN ×2 (04:14→08:51)
[2016-11-12 07:16] LABS: HEMATOCRIT 30.1 % (42-52); MEAN CELL VOLUME 89.9 fL (80-100); MEAN CORPUSCULAR HGB CONC 34.6 g/dl (32-36); MEAN PLATELET VOLUME 10.2 fL (7.4-10.4); PLATELET COUNT 209 K/uL (130-400); RED BLOOD COUNT 3.35 M/uL (4.7-6.1); WHITE BLOOD COUNT 4.44 K/uL (4.8-10.8)
[2016-11-12 07:27] LABS: BUN/CREATININE RATIO 13.3 (10-20); CALCIUM 9.1 mg/dl (8.5-10.1); CREATININE 1.6 mg/dl (0.60-1.40); POTASSIUM 3.5 mmol/L (3.5-5.1)
[2016-11-12 08:34] VITALS: BP 156/73; PULSE 71; TEMP 36.7; O2SAT 99
[2016-11-12] MEDS: ALLOPURINOL 100 MG TAB PO SCH (08:42)
[2016-11-12] MEDS: ASPIRIN 81 MG ECTAB PO SCH (08:42)
[2016-11-12] MEDS: LACTOBACILLUS ACIDOPHILUS (FLORANEX) TAB PO SCH ×2 (08:42→12:27)
[2016-11-12] MEDS: CHOLECALCIFEROL 1000 INTER.UNIT TAB PO SCH (08:43)
[2016-11-12] MEDS: FAMOTIDINE 20 MG TAB PO SCH (08:43)
[2016-11-12] MEDS: MULTIVITAMIN TAB PO SCH (08:43)
[2016-11-12] MEDS: CEPHALEXIN MONOHYDRATE 250 MG CAP PO SCH ×2 (08:43→12:27)
[2016-11-12] MEDS: HEPARIN SOD 5000 UNIT/0.5 ML CARP SQ SCH (08:50)
[2016-11-12] MEDS ORDERED: LCTX PO (12:06)
[2016-11-12] MEDS ORDERED: KFL250 PO (12:06)
[2016-11-12 13:27] VITALS: BP 156/73; PULSE 71; TEMP 36.7; O2SAT 99
--- NOTE | 2016-11-12 14:18 | Progress Note ---
Internal Med Progress Note Date of Service: Nov 12, 2016. Provider Documentation: SUBJECTIVE: minimum swelling in rt foot , has persisted erythema on rt second toe and tenderness able to walk independently no fever or chills feels well enough to go home today OBJECTIVE: Vital Signs-as noted below Exam: General-no sign of discomfort Eyes-sclera non icteric ENT-NAD Neck-no JVD Lungs-CTA , no wheeze or rales Heart-regular s1/S2 Abdomen-soft, non tender Extremities-rt lower ext -improved erythema ,swelling , persisted redness on Rt 2nd toe , tender to touch Neuro-no focal deficit Lab data as noted below. ASSESSMENT & PLAN: Cellulitis of R foot, -Ddx: cellulitis vs. gouty flare vs. -Work up: No leukocytosis, afebrile. Normal lactic acid. Uric acid normal. Foot XR with soft tissue swelling. Lower ext U/S negative for DVT. clinically much improved will D/c Clindamycin PO keflex 3 more days HTN: stable -d/c amlodipine for lower ext edema HX OF Gout: -Continue allopurinol -started on po Prednisone with significant improvement of rt great toe tenderness and erythema cont on oral prednisone will be discharged on taper DVT Ppx: heparin Code status: FULL DISPOSITION Discharge home today Vital Signs: Date Time Temp Pulse Resp B/P (MAP) Pulse Ox O2 Delivery O2 Flow Rate FiO2 11/12/16 13:27 36.7 71 18 99 Room Air 11/12/16 08:34 36.7 71 18 156/73 (100) 99 Room Air 11/12/16 08:03 Room Air 11/12/16 00:00 Room Air 11/11/16 23:57 36.8 72 18 129/75 (93) 95 Room Air 11/11/16 16:00 Room Air 11/11/16 15:58 36.9 75 18 116/64 (81) 97 Room Air Lab Results: Results Past 24 Hours Test 11/12/16 06:21 Range/Units White Blood Count 4.44 4.8-10.8 K/uL Red Blood Count 3.35 4.7-6.1 M/uL Hemoglobin 10.4 14.0-18.0 g/dL Hematocrit 30.1 42-52 % Mean Corpuscular Volume 89.9 80-100 fL Mean Corpuscular Hemoglobin 31.0 25-34 pg Mean Corpuscular Hemoglobin Concent 34.6 32-36 g/dl RDW Standard Deviation 46.1 36.4-46.3 fL RDW Coefficient of Variation 13.9 11.5-14.5 % Platelet Count 209 130-400 K/uL Mean Platelet Volume 10.2 7.4-10.4 fL Sodium Level 140 136-145 mmol/L Potassium Level 3.5 3.5-5.1 mmol/L Chloride Level 107 98-107 mmol/L Carbon Dioxide Level 26 21-32 mmol/L Anion Gap 7.0 3-11 mmol/L Blood Urea Nitrogen 21 7-18 mg/dl Creatinine 1.60 0.60-1.40 mg/dl Est Creatinine Clear Calc Drug Dose 40.6 ml/min Estimated GFR () 47.8 Estimated GFR (Non- 41.2 BUN/Creatinine Ratio 13.3 10-20 Random Glucose 89 70-99 mg/dl Calcium Level 9.1 8.5-10.1 mg/dl
--- NOTE | 2016-11-12 14:19 | Discharge Summary ---
Discharge Summary Date of Service Nov 12, 2016. Discharge Summary Admission Date: Nov 09, 2016 at 15:06 Discharge Date: Nov 12, 2016 Discharge Disposition: Home Principal Diagnosis: CELLULITIS OF RIGHT FOOT /ACUTE GOUTY ARTHRITIS Procedures: LOWER EXT DOPPLER : NEGATIVE FOR DVT XRAY OF RIGHT FOOT ; 3 VIEW : IMPRESSION: 1. Soft tissue edema with no acute bony abnormality seen in the right foot. 2. Osteopenia with arthritic change and heel spur as above. Medication Reconciliation New Medications: Prednisone (Prednisone) 2.5 Mg Tab 2.5 MG PO ud for 4 Days, #10 TAB 5 mg ( 2 tablets ) daily for 2 days 2.5 mg( 1 tablet) daily for 2 days Cephalexin Monohydrate (Cephalexin) 250 Mg Cap 250 MG PO QID for 3 Days, #12 CAP Lactobacillus Acidophilus (Floranex) 1 Tab Tab 4 TAB PO TIDM for 7 Days, TAB over the counter Continued Medications: Allopurinol (Zyloprim) 100 Mg Tab 100 MG PO DAILY, TAB Aspirin (Aspirin Ec) 81 Mg Tab 81 MG PO QAM Cholecalciferol (Vitamin D3) 1,000 Unit Tab 1000 UNITS PO DAILY, TAB Famotidine (Pepcid) 20 Mg Tab 20 MG PO BID, TAB Multivitamin (Multivitamin) Tab 1 TAB PO QAM, TAB Discontinued Medications: Amlodipine (Norvasc) 10 Mg Tab 10 MG PO DAILY, TAB Admission Information HPI (per Admitting provider): This is a 76yo M with a PMH of gout, HTN, CKD III who presents with right foot swelling over the past 4 days. States that he started to notice redness around his R great toe on Monday, which progressed to redness, swelling, warmth and pain of entire R foot and ankle by today. Associated symptoms included fever and chills as well as difficulty with ambulation (started to require a cane). Went to PCP and was redirected to the ED for infectious work-up. Currently endorses pain to touch of joints in R toe and ankle but denies fever, chills, lightheadedness, confusion, CP, SOB or calf pain. Recently presented to ED for an angioedema episode 2/2 lisinopril use and was switched to amlodipine. Has a history of gout in his R great toe but states that this pain is much more severe and involves more of his foot and ankle. No h/o DVTs. During time in ED, physician noted that swelling and redness spread from R foot/ ankle up patient's R leg. Started on ceftriaxone/vanc for empiric coverage. Physical Exam (per Admitting): General Appearance: WD/WN, no apparent distress Head: normocephalic, atraumatic Eyes: normal inspection, sclerae normal ENT: normal ENT inspection, hearing grossly normal Neck: supple, no adenopathy, thyroid normal, trachea midline Respiratory/Chest: chest non-tender, lungs clear, normal breath sounds, no respiratory distress, no accessory muscle use Cardiovascular: regular rate, rhythm, no edema, no gallop, no JVD, no murmur , normal peripheral pulses Abdomen/GI: normal bowel sounds, non tender, soft, no organomegaly Back: normal inspection Extremities/Musculoskelatal: no calf tenderness, normal capillary refill, + inflammation, + swelling, + pertinent finding (Presence of erythema and edema of R great toe, foot and bilateral ankles with trace erythema and edema noted in R LE below knee. Warm to touch. TTP. Limited ROM of toes and ankle 2/2 pain. No abnormalities noted of L LE. Toenails thickened and yellow.) Neurologic/Psych: no motor/sensory deficits, alert, normal mood/affect, normal reflexes, oriented x 3 Skin: normal color, warm/dry Lymphatic: no adenopathy Hospital Course Cellulitis of R foot, -Ddx: cellulitis vs. gouty flare vs. -Work up: No leukocytosis, afebrile. Normal lactic acid. Uric acid normal. Foot XR with soft tissue swelling. Lower ext U/S negative for DVT. clinically much improved will D/c Clindamycin PO keflex 3 more days HTN: stable -d/c amlodipine for lower ext edema HX OF Gout: -Continue allopurinol -started on po Prednisone with significant improvement of rt great toe tenderness and erythema cont on oral prednisone will be discharged on taper DVT Ppx: heparin Code status: FULL DISPOSITION Discharge home today Discharge Instructions DI: Medical v4 Discharge Instructions Date of Service Nov 11, 2016. Admission Reason for Admission: Cellulitis Of Right Foot Discharge Discharge Diagnosis / Problem: CELLULITIS OF RIGHT FOOT /ACUTE GOUTY ARTHRITIS Discharge Goals Goal(s): Decrease discomfort, Improve disease control, Therapeutic intervention Activity Recommendations Activity Limitations: resume your previous activity . Instructions / Follow-Up Instructions / Follow-Up HOSPITAL FOLLOW UP : 11/15/2016 3:00 PM Luisito Smith MD Internal Medicine [facility] Current Hospital Diet Patient's current hospital diet: Renal Diet, Low Sodium Diet (2gm Na) Discharge Diet Recommended Diet: Low Sodium Diet (2gm Na) Pending Studies Studies pending at discharge: no Medical Emergencies . Who to Call and When: Medical Emergencies: If at any time you feel your situation is an emergency, please call 911 immediately. . Non-Emergent Contact Non-Emergency issues call your: Primary Care Provider . . "Provider Documentation" section prepared by Kim Patterson. . VTE Core Measure Inpt VTE Proph given/why not?: Unfractionated heparin SQ Additional Copies To Luisito Smith M.D.
[2016-11-17] MEDS ORDERED: TRAM-10 PO (08:53)
[2016-11-17] MEDS ORDERED: VITA1CAP4 PO (08:53)
== END 2016-11-12 14:30 | disposition home or self-care (01) ==
LOC: C.EDB 10:51 → C.4E 15:06 → ENRESERV 15:17
PROVIDERS: ADMIT Internal Medicine; ATTEND Hospitalist
DX: L03.115 Cellulitis of right lower limb (principal); M10.9 Gout, unspecified; I12.9 Hypertensive chronic kidney disease with stage 1 through stage 4 chronic kidney disease, or unspecified chronic kidney disease; N18.3 Chronic kidney disease, stage 3 (moderate); E78.5 Hyperlipidemia, unspecified; H34.8312 Tributary (branch) retinal vein occlusion, right eye, stable; M19.90 Unspecified osteoarthritis, unspecified site; Z79.82 Long term (current) use of aspirin; Z79.899 Other long term (current) drug therapy; Z96.642 Presence of left artificial hip joint

== ENCOUNTER 2017-02-20 06:50 | Inpatient (IN) | payer OTHER ==
[2016-11-17 08:54] VITALS: BMI 27.0
--- NOTE | 2016-11-17 09:27 | PAT Medication Instructions ---
Service Date Nov 17, 2016. Current Home Medication List Allopurinol (Zyloprim), 100 MG PO QAM Aspirin (Aspirin Ec), 81 MG PO QAM Cholecalciferol (Vitamin D3), 1,000 UNITS PO QAM Famotidine (Pepcid), 20 MG PO BID Multivitamin (Multivitamin), 1 TAB PO QAM Tramadol (Ultram), 50 MG PO Q8H PRN for Pain Vitamin E (E 1000), 1,000 UNITS PO QAM Medication Instructions For Your Scheduled Surgery - Hold the following medications 2 weeks prior to surgery: Vitamin E (E 1000), 1,000 UNITS PO QAM - Hold the following medications the morning of surgery: Multivitamin (Multivitamin), 1 TAB PO QAM Cholecalciferol (Vitamin D3), 1,000 UNITS PO QAM - Take the following medications the morning of surgery with a sip of water OTHERWISE NOTHING TO EAT OR DRINK AFTER MIDNIGHT: Allopurinol (Zyloprim), 100 MG PO QAM Aspirin (Aspirin Ec), 81 MG PO QAM Tramadol (Ultram), 50 MG PO Q8H PRN for Pain (may take if needed up to 4 hours prior to surgery) Famotidine (Pepcid), 20 MG PO BID - Take the following medications as scheduled the night before surgery: Tramadol (Ultram), 50 MG PO Q8H PRN for Pain Famotidine (Pepcid), 20 MG PO BID If you have any questions please call us at [phone] or [phone] or [phone]
--- NOTE | 2016-11-17 10:00 | DIAGNOSTIC IMAGING REPORT ---
CHEST 2 VIEWS ROUTINE HISTORY: 76 years-old Male preadmission exam COMPARISON: Chest radiograph 08/10/2006 TECHNIQUE: Frontal and lateral views of the chest FINDINGS: Cardiomediastinal and hilar silhouettes are within normal limits. There is no pneumothorax, pleural effusion or focal airspace consolidation. Degenerative changes involving shoulders bilaterally. Mild intervertebral disc space narrowing is seen within the mid thoracic spine with multilevel endplate spurring. The bones appear intact. IMPRESSION: No acute cardiopulmonary process. The above report was generated using voice recognition software. It may contain grammatical, syntax or spelling errors. Electronically signed by: Luis Quiros M.D. 11/17/2016 9:59 AM Dictated Date/Time: 11/17/2016 9:58 AM
--- NOTE | 2016-12-07 10:50 | HISTORY & PHYSICAL EXAMINATION ---
DATE OF ADMISSION: 12/08/2016 CHIEF COMPLAINT: Right hip pain. HISTORY OF PRESENT ILLNESS: The patient is a 76-year-old gentleman with known severe osteoarthritis about his right hip. He takes tramadol daily for pain. He has severe pain with activities of daily living. He has significant limitation of his ability to ambulate. He had a previous left hip arthroplasty many years ago. He now desires to proceed with right total hip arthroplasty. PAST MEDICAL HISTORY: Hyperlipidemia, gout, and stage III chronic kidney disease. PAST SURGICAL HISTORY: Left hip as above. MEDICATIONS: Tramadol 50 mg q. 8 hours p.r.n. pain, Pepcid 10 mg twice daily, allopurinol 100 mg daily, cholecalciferol 1000 units daily, multivitamin daily, and aspirin 81 mg daily. ALLERGIES: No known drug allergies. SOCIAL HISTORY AND REVIEW OF SYSTEMS: Noncontributory. PHYSICAL EXAMINATION: GENERAL: Well-nourished and well-developed elderly male who appears his stated age. HEENT: Normocephalic and atraumatic. Extraocular movements intact. Oropharynx is pink and moist. NECK: Supple without adenopathy. LUNGS: Clear to auscultation bilaterally. HEART: Regular rate and rhythm. ABDOMEN: Soft, nontender, nondistended, and obese. EXTREMITIES: The upper extremities are within normal limits. The right hip demonstrates severe limitation of range of motion. There is significant limitation of active and passive internal/external rotation with pain. X-RAYS: X-rays were reviewed. He has a total hip replacement on the left. His right hip demonstrates severe DJD with complete loss of the joint space. There is deformation of the femoral head. There are large osteophytes about the femoral head and acetabulum. ASSESSMENT: Right hip degenerative joint disease. PLAN: Risks versus benefits were discussed. Consent was obtained. The patient's primary care physician is Dr. Gray. We will proceed with right total hip arthroplasty upon preoperative workup and medical clearance.
[2017-01-24 10:45] VITALS: Ht 177.8 cm; Wt 84.1 kg
[2017-02-03 13:16] LABS: BASO % 0.3 %; BASO ABS # 0.02 K/uL (0-0.2); EOS % 2.7 %; EOS ABS # 0.17 K/uL (0-0.5); HEMATOCRIT 34.8 % (42-52); HEMOGLOBIN 11.8 g/dL (14.0-18.0); IG# 0.02 K/uL (0.00-0.02); LYMPH % 21.1 %; LYMPH ABS # 1.35 K/uL (1.2-3.4); MEAN CELL VOLUME 89.5 fL (80-100); MEAN CORPUSCULAR HEMOGLOBIN 30.3 pg (25-34); MEAN CORPUSCULAR HGB CONC 33.9 g/dl (32-36); MEAN PLATELET VOLUME 9.7 fL (7.4-10.4); MONO % 8.1 %; MONO ABS # 0.52 K/uL (0.11-0.59); NEUT % 67.5 %; NEUT ABS # 4.33 K/uL (1.4-6.5); PLATELET COUNT 181 K/uL (130-400); RED CELL DISTRIBUTION WIDTH CV 16.5 % (11.5-14.5); RED CELL DISTRIBUTION WIDTH SD 53.9 fL (36.4-46.3); WHITE BLOOD COUNT 6.41 K/uL (4.8-10.8)
--- NOTE | 2017-02-03 13:20 | DIAGNOSTIC IMAGING REPORT ---
CHEST 2 VIEWS ROUTINE HISTORY: PRE OP COMPARISON: Chest 11/17/2016. FINDINGS: The heart is normal in size. No focal lung consolidations to suggest pneumonia. No evidence for pulmonary edema. No pleural effusions. No pneumothorax. Tiny nodular density within the periphery the right lung base remain stable. This may represent a nipple shadow. Otherwise, the lungs are clear. IMPRESSION: No significant change compared to the prior study. No acute process. Electronically signed by: Germán Jules M.D. 02/03/2017 1:18 PM Dictated Date/Time: 02/03/2017 1:13 PM
[2017-02-03 13:47] LABS: CREATININE 1.4 mg/dl (0.60-1.40)
--- NOTE | 2017-02-08 13:24 | HISTORY & PHYSICAL EXAMINATION ---
DATE OF ADMISSION: 02/20/2017 CHIEF COMPLAINT: Right hip pain. HISTORY OF PRESENT ILLNESS: Mr. Lawson is a 76-year-old male with a 1-year history of right hip pain. The patient rates his pain a 10/10. He has pain with his daily activities. He has limited standing and walking tolerance. Pain is worse with weightbearing. The patient has failed tramadol. He is unable to exercise due to his pain level. He is also ambulating with a cane. He has failed conservative treatment and is scheduled for right hip replacement with Dr. Perales. PAST MEDICAL HISTORY: Hypertension, history of gout. He denies heart disease, diabetes or DVT. PAST SURGICAL HISTORY: Hernia repair, left total hip arthroplasty and retinal repair 2015. SOCIAL HISTORY: The patient denies alcohol or tobacco use. He lives in a 2-story home. He is and retired. FAMILY HISTORY: Negative for DVT. MEDICATIONS: Aspirin 81 mg, vitamin D3 1000 mg, famotidine, allopurinol 100 mg, tramadol 50 mg, carvedilol, and furosemide 10 mg. ALLERGIES: None. REVIEW OF SYSTEMS: See HPI. Ten other systems reviewed, all negative. PHYSICAL EXAMINATION: VITAL SIGNS: Height 5 feet 10 inches, weight 180 pounds. BMI is 26. GENERAL: This is a well-developed, well-nourished male who is alert and oriented x3. Mood and affect are appropriate. HEAD, EYES, EARS, NOSE, AND THROAT: Normocephalic, atraumatic. Mucous membranes are moist and intact. NECK: Supple without lymphadenopathy. HEART: Regular rate and rhythm without murmurs, rubs or gallops. LUNGS: Clear to auscultation without wheezes or rhonchi. ABDOMEN: Soft and nontender. Bowel sounds are equal and active. EXTREMITIES: No ecchymosis, redness or warmth. Thigh and calf are soft and nontender. Log roll of the hip reproduces pain in the groin. Range of motion is decreased. He is neurovascularly intact with +5/5 strength. X-RAY EXAMINATION: AP and lateral views show joint space narrowing and osteophyte formation of the right hip. IMPRESSION: Degenerative joint disease, right hip. PLAN: The patient will be admitted for a right total hip arthroplasty with Dr. Perales. We will plan on aspirin for DVT prophylaxis. The patient prefers not to have any formal therapy upon discharge.
--- NOTE | 2017-02-17 09:36 | HISTORY & PHYSICAL EXAMINATION ---
DATE OF ADMISSION: CHIEF COMPLAINT: Right hip pain. HISTORY OF PRESENT ILLNESS: The patient is a 76-year-old gentleman with known severe osteoarthritis about his right hip. He is unable to take anti-inflammatory medications due to stage III chronic kidney disease. He has had a previous left hip replacement which has done well. Due to ongoing pain and disability, he now desires to proceed with right total hip arthroplasty. PAST MEDICAL HISTORY: Chronic anemia likely related to his chronic kidney disease, stage III kidney disease, hypertension, retinal vein occlusion of the right eye with macular edema, hearing loss, hyperlipidemia and hyperuricemia. PAST SURGICAL HISTORY: Lumbar spine surgery, laser surgery of his eye, eye injections, cataract surgery, inguinal hernia surgery, left hip replacement as above. MEDICATIONS: Demadex 20 mg daily, Coreg 12.5 mg 2 times daily, Ultram 50 mg q. 8 hours p.r.n. pain, Pepcid-AC 10 mg twice daily, allopurinol 100 mg daily, cholecalciferol 1000 units daily, multivitamin daily, aspirin 81 mg daily. ALLERGIES: No known allergies. SOCIAL HISTORY AND REVIEW OF SYSTEMS: Noncontributory. PHYSICAL EXAMINATION: GENERAL: Well-nourished, well-developed elderly male who appears stated age. HEENT: Normocephalic, atraumatic, extraocular movements intact, oropharynx pink and moist. NECK: Supple without adenopathy. LUNGS: Clear to auscultation bilaterally. HEART: Regular rate and rhythm. ABDOMEN: Soft, nontender, nondistended. EXTREMITIES: The upper extremity within normal limits. The right hip demonstrates severe limitation of motion. There is minimal internal/external rotation of the hip. X-RAYS: X-rays were reviewed. He has a well-aligned total hip on the left. His right hip demonstrates severe osteoarthritis with complete loss of the joint space. There is deformation of the femoral head. There are large osteophytes about the femoral head and acetabulum. ASSESSMENT: Right hip degenerative joint disease. PLAN: Risks versus benefits were discussed. Consent was obtained. The patient's primary care physician is Dr. Smith. We will proceed with right total hip arthroplasty upon preoperative workup and medical clearance.
[2017-02-20] VITALS (11 sets, daily range): BP systolic 86–145; BP diastolic 49–78; PULSE 63–91; TEMP 36.4–36.8; O2SAT 92–99
[~2017-02-20] VITALS: Ht 177.8 cm; Wt 84.1 kg
[2017-02-20] MEDS: TRANEXAMIC ACID INJ 1,000 MG in SYRINGE 0 ML IV SCH ×2 (06:30→08:39)
[~2017-02-20 06:50] MED LIST changes: +ACETAMINOPHEN 500 MG TAB PO SCH; -AMLO-110 PO; +BUPIVACAINE 0.5 % 5 MG/1 ML PF 10ML VIAL ONE; +CARV12.52 PO; +CEFAZOLIN 2000 MG/60 ML D5W 60 ML IV SCH; +CEFAZOLIN 2000MG IV PUSH 10 ML IV SCH; +CeleBREX 200 MG CAP PO SCH; +DEXAMETHASONE 4 MG TAB PO SCH; +FAMOTIDINE 20 MG TAB PO SCH; +GABAPENTIN 300 MG CAP PO SCH; +LACTATED RINGER'S 1000ML 1,000 ML IV SCH; +LACTATED RINGER'S 1000ML 500 ML IV ONE; +LACTATED RINGER'S 1000ML IV SCH; -LISI-787 PO; +METOCLOPRAMIDE HCL 10 MG TAB PO SCH; -PRED20TA PO; +ROPIVACAINE 5MG/ML 30 ML 150 MG, BUPIVACAINE 0.5% MPF INJ 30 ML, EpINEphrine HCL INJ 0.... INFIL SCH; +ROPIVACAINE 5MG/ML 30 ML 150 MG, BUPIVACAINE/EPINEPHR 0.5% MPF 30 ML, KETOROLAC TROMETH... INFIL SCH; +TORS20TA2 PO; +TRAM-10 PO; +TRANEXAMIC ACID INJ 1,000 MG in SODIUM CHLORIDE 0.9% 100ML 100 ML IV SCH
[2017-02-20] MEDS ORDERED: PROPOFOL IV EMULSION 10 MG/ML 20 ML VIAL IV ONE (07:24)
[2017-02-20] MEDS ORDERED: ONDANSETRON INJ 2 MG/ML 2 ML VIAL ONE (07:24)
[2017-02-20] MEDS ORDERED: LIDOCAINE HCL 2% 2 ML VIAL (20MG/ML) ONE (07:24)
[2017-02-20] MEDS ORDERED: MIDAZOLAM HCL 1 MG/ML 2ML VIAL ONE (07:24)
[2017-02-20] MEDS ORDERED: FENTANYL CITRATE INJ 50 MCG/1 ML 2 ML VIAL ONE (07:25)
--- NOTE | 2017-02-20 07:57 | History & Physical Bridge Note ---
H&P Re-Evaluation Bridge Note: I have examined the patient, reviewed the History & Physical and in the interval since the performance of the History & Physical I have noted the following changes of clinical significance: No changes noted
[2017-02-20] MEDS ORDERED: BACITRACIN 50000 UNIT VIAL ONE (08:22)
[2017-02-20] MEDS ORDERED: ORTHO JOINT ANESTHETIC ONE (08:22)
[2017-02-20] MEDS ORDERED: POVIDONE-IODINE OP SOLN 30 ML BTL ONE (08:22)
[2017-02-20] MEDS ORDERED: EpHEDrine SULFATE INJ 50 MG/ML AMP IV PRN (09:15)
[2017-02-20] MEDS ORDERED: ATROPINE SULFATE 0.1 MG/ML 5ML SYR IV PRN (09:15)
[2017-02-20] MEDS ORDERED: ONDANSETRON INJ 2 MG/ML 2 ML VIAL IV PRN (09:15)
--- NOTE | 2017-02-20 09:40 | [facility] Post Operative Brief Note ---
Immediate Operative Summary Operative Date Feb 20, 2017. Pre-Operative Diagnosis oa r hip Post-Operative Diagnosis same Procedure(s) Performed r zoya Surgeon Angella Casing Running Machine Tender Surgeon(s) Alexandra Estimated Blood Loss 100cc Findings Severe OA Specimens head Complication(s) None Disposition Recovery Room / PACU
[2017-02-20] MEDS ORDERED: MoRPHine SULFATE 2 MG/ML CARP IV PRN (10:15)
[2017-02-20] MEDS ORDERED: ALUMINUM/MAGNESIUM/SIMETH (MAALOX MAX) 30 ML UDC PO PRN (10:15)
[2017-02-20] MEDS ORDERED: OXYCODONE HCL IR 5 MG TAB (IMMEDIATE RELEASE) PO PRN (10:15)
[2017-02-20] MEDS ORDERED: TAMSULOSIN HCL 0.4 MG CAP PO PRN (10:15)
[2017-02-20] MEDS ORDERED: BISACODYL 10 MG SUPP PR PRN (10:15)
[2017-02-20] MEDS ORDERED: MAGNESIUM HYDROXIDE SUSP 30 ML UDC PO PRN (10:15)
[2017-02-20] MEDS ORDERED: MoRPHine SULFATE 4 MG/ML 1 ML CARP\\VIAL IV PRN (10:45)
[2017-02-20] MEDS ORDERED: MoRPHine SULFATE 10 MG/ML CARP/VIAL IV PRN (10:45)
--- NOTE | 2017-02-20 10:52 | DIAGNOSTIC IMAGING REPORT ---
AP PELVIS AND RIGHT HIP 2 VIEWS CLINICAL HISTORY: Postop hip arthroplasty COMPARISON STUDY: September 2006 FINDINGS: Again evident is a total left hip arthroplasty. There is evidence for a recent total right hip arthroplasty. The acetabular and femoral components appear well seated. There is no dislocation. There are overlying surgical drains. There is air in the soft tissues consistent with recent surgery. No acute fractures are visualized. IMPRESSION: Postsurgical changes of an interval total right hip arthroplasty. No evidence of dislocation. Electronically signed by: Case Vanessa M.D. 02/20/2017 10:51 AM Dictated Date/Time: 02/20/2017 10:50 AM
--- NOTE | 2017-02-20 11:55 | Anesthesiology Progress Note ---
Anesthesia Post Op Note Date & Time Feb 20, 2017 at 11:54 Vital Signs Pain Intensity: 0 Vital Signs Past 12 Hours Date Time Temp Pulse Resp B/P (MAP) Pulse Ox O2 Delivery O2 Flow Rate FiO2 02/20/17 11:50 63 15 95/58 97 Nasal Cannula 2 02/20/17 11:45 76 14 83/49 97 Nasal Cannula 2 02/20/17 11:30 61 14 87/58 98 Nasal Cannula 2 02/20/17 11:15 62 14 97/56 98 Nasal Cannula 2 02/20/17 11:10 60 14 88/52 98 Nasal Cannula 2 02/20/17 10:55 73 14 97/55 97 Nasal Cannula 2 02/20/17 10:45 36.4 76 15 96/46 99 Nasal Cannula 2 02/20/17 10:35 62 16 91/52 98 Nasal Cannula 2 02/20/17 10:25 58 16 89/53 99 Nasal Cannula 2 02/20/17 10:15 53 14 91/50 100 Oxymask 8 02/20/17 10:07 36.7 66 16 83/50 100 Oxymask 8 02/20/17 07:51 36.7 63 20 145/50 99 Room Air Notes Mental Status: alert / awake / arousable, participated in evaluation Pt Amnestic to Procedure: Yes Nausea / Vomiting: adequately controlled Pain: adequately controlled Airway Patency, RR, SpO2: stable & adequate BP & HR: stable & adequate Hydration State: stable & adequate Neuraxial Anesthesia: was administered, sensory block is resolving Anesthetic Complications: no major complications apparent
[2017-02-20] MEDS: D5W AND 1/2NSS + 20MEQ KCL 1,000 ML IV SCH ×2 (13:49→23:47)
[2017-02-20] MEDS: ACETAMINOPHEN 500 MG TAB PO SCH ×2 (13:50→21:08)
[2017-02-20] MEDS: CEFAZOLIN IV 2,000 MG in SYRINGE 0 ML IV SCH (18:16)
[2017-02-20] MEDS: FERROUS GLUCONATE 324 MG TAB PO SCH (18:16)
[2017-02-20] MEDS ORDERED: FAMOTIDINE 20 MG TAB PO SCH (21:00)
[2017-02-20] MEDS ORDERED: SENNA 8.6 MG TAB PO SCH (21:00)
[2017-02-20] MEDS: DOCUSATE SODIUM 100 MG CAP PO SCH (21:07)
[2017-02-20] MEDS: ASPIRIN 81 MG ECTAB PO SCH (21:08)
[2017-02-20] MEDS: CARVEDILOL 12.5 MG TAB PO SCH (21:08)
[2017-02-21] MEDS: CEFAZOLIN IV 2,000 MG in SYRINGE 0 ML IV SCH (01:47)
[2017-02-21] MEDS: TRAMADOL HCL 50 MG TAB PO PRN ×2 (01:56→08:13)
[2017-02-21 03:30] VITALS: BP 113/59; PULSE 68; TEMP 36.9; O2SAT 94
[2017-02-21] MEDS: ACETAMINOPHEN 500 MG TAB PO SCH (05:43)
[2017-02-21 06:51] LABS: BASO % 0.1 %; BASO ABS # 0.01 K/uL (0-0.2); HEMOGLOBIN 9.5 g/dL (14.0-18.0); IG# 0.02 K/uL (0.00-0.02); LYMPH % 8.7 %; LYMPH ABS # 0.78 K/uL (1.2-3.4); MEAN CELL VOLUME 89.5 fL (80-100); MEAN CORPUSCULAR HEMOGLOBIN 29.3 pg (25-34); MEAN CORPUSCULAR HGB CONC 32.8 g/dl (32-36); MEAN PLATELET VOLUME 9.9 fL (7.4-10.4); MONO % 9.8 %; MONO ABS # 0.88 K/uL (0.11-0.59); NEUT % 81.2 %; NEUT ABS # 7.29 K/uL (1.4-6.5); PLATELET COUNT 170 K/uL (130-400); RED CELL DISTRIBUTION WIDTH CV 16.6 % (11.5-14.5); RED CELL DISTRIBUTION WIDTH SD 54.3 fL (36.4-46.3); WHITE BLOOD COUNT 8.98 K/uL (4.8-10.8)
[2017-02-21 07:05] VITALS: BP 112/50; PULSE 60; TEMP 36.5; O2SAT 96
[2017-02-21 07:26] LABS: CALCIUM 8.5 mg/dl (8.5-10.1); CREATININE 1.64 mg/dl (0.60-1.40); POTASSIUM 4.6 mmol/L (3.5-5.1)
--- NOTE | 2017-02-21 07:47 | Orthopedic Progress Note ---
Orthopedic Progress Note Date of Service Feb 21, 2017. Subjective Post OP Day: 1 Reports: feeling well, Denies: chest pain, SOB, nausea / vomiting, light headedness, calf pain Objective calves soft nontender, N/V intact, hip located, capillary refill less than 2 sec., dressing C/D/I, A&O x3, toes mobile, hemovac drainage (215/95 CC PER SHIFT ) Date Time Temp Pulse Resp B/P (MAP) Pulse Ox O2 Delivery O2 Flow Rate FiO2 02/21/17 07:05 36.5 60 19 112/50 (70) 96 Room Air 02/21/17 03:30 36.9 68 16 113/59 (77) 94 Room Air 02/20/17 23:55 Room Air 02/20/17 22:58 36.8 91 16 117/60 (79) 97 Room Air 02/20/17 20:45 89 117/60 (79) 02/20/17 20:01 36.6 72 17 108/57 (74) 93 Room Air 02/20/17 18:00 109/55 (73) 02/20/17 15:32 70 16 97/54 (68) 95 Room Air 02/20/17 15:20 Room Air 02/20/17 15:07 36.7 70 17 86/50 (62) 92 Room Air 90/49 (63) 02/20/17 14:10 36.4 81 19 104/65 (78) 92 Room Air 02/20/17 13:06 69 16 103/51 (68) 96 Nasal Cannula 2.0 02/20/17 12:40 87 17 111/78 (89) 97 Nasal Cannula 2.0 02/20/17 12:10 98 Nasal Cannula 2.0 02/20/17 12:10 98 Nasal Cannula 2.0 02/20/17 12:10 36.4 84 16 102/58 (73) 98 Nasal Cannula 2.0 02/20/17 11:50 63 15 95/58 97 Nasal Cannula 2 02/20/17 11:45 76 14 83/49 97 Nasal Cannula 2 02/20/17 11:30 61 14 87/58 98 Nasal Cannula 2 02/20/17 11:15 62 14 97/56 98 Nasal Cannula 2 02/20/17 11:10 60 14 88/52 98 Nasal Cannula 2 02/20/17 10:55 73 14 97/55 97 Nasal Cannula 2 02/20/17 10:45 36.4 76 15 96/46 99 Nasal Cannula 2 02/20/17 10:35 62 16 91/52 98 Nasal Cannula 2 02/20/17 10:25 58 16 89/53 99 Nasal Cannula 2 02/20/17 10:15 53 14 91/50 100 Oxymask 8 02/20/17 10:07 36.7 66 16 83/50 100 Oxymask 8 02/20/17 07:51 36.7 63 20 145/50 99 Room Air Laboratory Results 24 Hours: Test 02/21/17 06:33 White Blood Count 8.98 K/uL Red Blood Count 3.24 M/uL Hemoglobin 9.5 g/dL Hematocrit 29.0 % Mean Corpuscular Volume 89.5 fL Mean Corpuscular Hemoglobin 29.3 pg Mean Corpuscular Hemoglobin Concent 32.8 g/dl Platelet Count 170 K/uL Mean Platelet Volume 9.9 fL Neutrophils (%) (Auto) 81.2 % Lymphocytes (%) (Auto) 8.7 % Monocytes (%) (Auto) 9.8 % Eosinophils (%) (Auto) 0.0 % Basophils (%) (Auto) 0.1 % Neutrophils # (Auto) 7.29 K/uL Lymphocytes # (Auto) 0.78 K/uL Monocytes # (Auto) 0.88 K/uL Eosinophils # (Auto) 0.00 K/uL Basophils # (Auto) 0.01 K/uL Assessment & Plan Assessment: POD#1 SP RIGHT MAURISIO Plan: PT/OT DVT PROPH- ASA 81MG BID PAIN MANAGEMENT- VIV, TYLENOL DC PLANNING- LIKELY DC HOME TODAY. PATIENT DOES NOT WANT FORMAL PT UPON DISCHARGE.
[2017-02-21] MEDS ORDERED: RXC5 PO (07:48)
[2017-02-21] MEDS ORDERED: SENN1TAB80 PO (07:48)
[2017-02-21] MEDS ORDERED: ONDA8TAB6 PO (07:48)
[2017-02-21] MEDS ORDERED: ASPI81TA28 PO (07:48)
--- NOTE | 2017-02-21 07:49 | Discharge Instructions ---
Discharge Instructions Date of Service Feb 21, 2017. Admission Reason for Admission: Right Hip Osteoarthritis Discharge Discharge Diagnosis / Problem: SP RIGHT ZOYA Discharge Goals Goal(s): Decrease discomfort, Improve function, Increase independence Activity Recommendations Activity Limitations: per Instructions/Follow-up section . Instructions / Follow-Up Instructions / Follow-Up ACTIVITY RECOMMENDATIONS: SELF CARE INSTRUCTIONS AFTER TOTAL HIP REPLACEMENT Until the incision and soft tissues around your hip have healed, there is a possibility that the hip prosthesis could dislocate. A. Observe the following precautions to prevent dislocation: 1. Don't bend your hip greater than 90 degrees. 2. Avoid crossing your legs or ankles while standing or lying. 3. Sit with your feet placed 6 inches apart. 4. When sitting, keep your knees below your hips. Sit on a firm surface, avoid deep, soft chairs and couches. Use an elevated toilet seat in the bathroom. 5. Don't bend over at the waist. Use a long handled shoehorn and a sock aid to help you put on your shoes and socks. A woodenware assembler can help you picker packer objects that are too high or too low to reach. 6. Keep car riding to a minimum for at least one month after surgery. B. Your balance may be shaky for a while. Use crutches or a walker until directed by your doctor. C. Use hand rails when walking on stairs. D. Wear low heeled shoes with non-slip soles. E. Be sure that your floors are free of things that could trip you - throw rugs , electrical cords, small objects. Avoid wet and waxed floors, especially with crutches and canes. F. Try to walk several times a day with rest periods between. G. Continue with all the exercises taught to you in the hospital. Again, make walking a part of your daily routine. SPECIAL CARE INSTRUCTIONS: VERY IMPORTANT TO READ AND REVIEW A. You may still be at risk for phlebitis and blood clots. 1. Wear surgical stockings (RUDDY hose) for 2 weeks after surgery to improve circulation and reduce swelling. 2. Take Aspirin 81mg twice daily for 4 weeks or as directed by your doctor. This is your blood thinner. 3. High risk patients may be prescribed a stronger blood thinner if necessary. 4. If you are on Coumadin normally, your family doctor/health promotion specialist should monitor your blood work. Expect a phone call the day of or the day after bloodwork is drawn to adjust your dosage. B. You must take antibiotics before having dental work, bladder, bowel and other surgery. Your doctor will provide you with a permanent card to carry describing precautions. C. Call [facility] if you have a fever, redness or swelling around the incision, cloudy drainage from incision, or sudden increase in pain in your hip, not relieved by your regular pain medication. D. Please call the office at if you have any concerns or questions about your operation or recovery. * YOU MAY SHOWER, NO TUB BATHS UNTIL CLEARED BY YOUR DOCTOR. * WEAR RUDDY HOSE 20 HOURS PER DAY FOR 2 WEEKS. * YOU SHOULD USE A WALKER OR CRUTCHES FOR 2-4 WEEKS. THIS WILL HELP PREVENT STRAIN ON YOUR HIP MUSCLE AND ALLOW IT TO HEAL PROPERLY. YOU MAY WEAN TO A CANE TOLERATED. * MOST PATIENTS WILL HAVE HOME NURSING FOR THERAPY. IF YOU DECIDE TO DO OUTPATIENT PHYSICAL THERAPY, PLEASE SCHEDULE THIS 3 TIMES PER WEEK. . * YOU HAVE A ZIPLINE CLOSURE. THIS IS IN PLACE OF SERGEY. DO NOT REMOVE. YOU MAY KEEP IT COVERED WITH A LIGHT DRESSING TO PREVENT SNAGGING. YOU MAY SHOWER. THIS WILL BE REMOVED AT YOUR 2 WEEK POST OP VISIT. FOLLOW UP VISIT: If appointment is not already scheduled: Please call [facility] to make a follow-up appointment for 2 weeks after your surgery at . Current Hospital Diet Patient's current hospital diet: Regular Diet Discharge Diet Recommended Diet: Regular Diet Procedures Procedures Performed: r zoya Pending Studies Studies pending at discharge: no Medical Emergencies . Who to Call and When: Medical Emergencies: If at any time you feel your situation is an emergency, please call 911 immediately. . Non-Emergent Contact Non-Emergency issues call your: Surgeon . "Provider Documentation" section prepared by Vira Li. . VTE Core Measure Inpt VTE Proph given/why not?: Other Anticoagulation, T.E.D. Stockings, SCD's [place] Drug Monitoring Program Search Results: patient reviewed within database, no issues identified
--- NOTE | 2017-02-21 07:54 | Anesthesiology Progress Note ---
Anesthesia Post Op Note Date & Time Feb 21, 2017 at 07:53 Vital Signs Pain Intensity: 8.0 Vital Signs Past 12 Hours Date Time Temp Pulse Resp B/P (MAP) Pulse Ox O2 Delivery O2 Flow Rate FiO2 02/21/17 07:05 36.5 60 19 112/50 (70) 96 Room Air 02/21/17 03:30 36.9 68 16 113/59 (77) 94 Room Air 02/20/17 23:55 Room Air 02/20/17 22:58 36.8 91 16 117/60 (79) 97 Room Air 02/20/17 20:45 89 117/60 (79) 02/20/17 20:01 36.6 72 17 108/57 (74) 93 Room Air Notes Mental Status: alert / awake / arousable, participated in evaluation Pt Amnestic to Procedure: Yes Nausea / Vomiting: adequately controlled Pain: adequately controlled Airway Patency, RR, SpO2: stable & adequate BP & HR: stable & adequate Hydration State: stable & adequate Neuraxial Anesthesia: sensory block resolved Anesthetic Complications: no major complications apparent
[2017-02-21] MEDS: FERROUS GLUCONATE 324 MG TAB PO SCH (08:13)
[2017-02-21] MEDS: DOCUSATE SODIUM 100 MG CAP PO SCH (08:13)
[2017-02-21] MEDS: CARVEDILOL 12.5 MG TAB PO SCH (08:13)
[2017-02-21] MEDS: ASPIRIN 81 MG ECTAB PO SCH (08:14)
[2017-02-21] MEDS: D5W AND 1/2NSS + 20MEQ KCL 1,000 ML IV SCH (08:16)
[2017-02-21] MEDS ORDERED: TORSEMIDE 20 MG TAB PO SCH (09:00)
[2017-02-21] MEDS ORDERED: MULTIVITAMIN TAB PO SCH (09:00)
[2017-02-21] MEDS ORDERED: ALLOPURINOL 100 MG TAB PO SCH (09:00)
[2017-02-21 10:23] VITALS: BP 112/50; PULSE 60; TEMP 36.5; O2SAT 96
--- NOTE | 2017-02-24 12:22 | DISCHARGE SUMMARY ---
DISCHARGE DIAGNOSIS: Degenerative joint disease, right hip. SECONDARY DIAGNOSES: Hyperlipidemia, gout, stage III chronic kidney disease. CONSULTS: None. COMPLICATIONS: None. PROCEDURES: Right total hip arthroplasty performed by Dr. Perales on 02/20/2017. BRIEF HISTORY: As dictated in the history and physical. HOSPITAL SUMMARY: The patient was admitted on the above-noted date and had the above-noted surgery performed which he tolerated well. On his first postoperative day, he was feeling well and had no complaints. Calves were soft and nontender. Neurovascularly intact. Hip was located. Dressings were clean, dry and intact. Toes were mobile. Vital signs were stable. He was afebrile. Hemoglobin was 9.5, and he was started on physical therapy protocol and continued on DVT prophylaxis and pain management. He was progressing well with his physical therapy and ambulating independently, and it was felt that he could be discharged to home on 02/21/2017. For further review, please see chart. LAB AND X-RAY DATA: As per chart. DISCHARGE INSTRUCTIONS: The patient was discharged to home in satisfactory condition on 02/21/2017. DIET: Regular. ACTIVITY: Follow MAURISIO instruction sheets and special care instructions as noted. Follow up with Dr. Perales in 2 weeks. The patient to call for appointment if one has not been made for you. DISCHARGE MEDICATIONS: Zofran 8 mg p.o. q. 8 hours p.r.n. nausea, oxycodone 5-10 mg p.o. q. 4 hours p.r.n. pain, sennosides 8.6 mg 2 tabs p.o. at bedtime. Resume home meds as listed and aspirin 81 mg p.o. b.i.d. for 30 days and resume once daily dosing thereafter.
--- NOTE | 2017-04-19 10:19 | OPERATIVE REPORT ---
PREOPERATIVE DIAGNOSIS: Osteoarthritis right hip. POSTOPERATIVE DIAGNOSIS: Same. PROCEDURE: Right connective total hip arthroplasty. SURGEON: Dr. Perales. LANDSCAPE AND YARDWORK LABORER: Jesus Morris PA-C. ANESTHESIA: Spinal. COMPLICATIONS: None. OPERATION AND FINDINGS: PROCEDURE: Following induction of adequate spinal anesthesia, the patient was placed in right lateral decubitus position and [place] incision was made. Subcutaneous tissue was sharply dissected. Electrocautery used for hemostasis. The fascia was incised throughout the length of the wound and a hogan scissor placed beneath the short external rotators. The pyriformis was tagged with #1 Vicryl. The short external rotators were divided from the posterior aspect of the femur using electrocautery. These were swept posteriorly. A T-capsulotomy incision was made and the hip was dislocated using a combination of flexion, adduction, and internal rotation. Exposure of the femoral neck with old-style Hohmann and a blunt Hohmann was carried out and a femoral rasp was utilized as a guide for making the appropriate level femoral neck cut. This bone fragment was removed and reserved on the back table. Next, attention was turned to the acetabulum where bone hook was used to retract the femur while the offset retractors were placed anterior and posteriorly. A double-angled Hohmann was placed in superior and anterior position exposing the acetabulum nicely. Acetabular labrum as well as posterior capsule elements were removed using a long knife and a long pickup. Fovea centralis was cleared of all soft tissue. Sequential reamings were carried up to a 60 and decision was made to proceed with impaction of a 5 trabecular metal cup. This was impacted and held using a single 35 mm bone screw. The acetabular liner was placed with 15* of elevated posterior wall in the superior and posterior position. Next, attention was turned to the femoral portion of the case where a Bovie and pickup was used to further clear short external rotators from their insertion on the femur. Box osteotome was used to gain access to the femoral canal and the T-handled rasp and a rattail rasp were used to further open and lateral the canal. Sequentially raspings were carried up to a -2.5 x 36 which gave good fit and fill of the proximal femur. A trial reduction was carried out and a 132 degree femoral neck component was chosen as the size to be used. A [] mm femoral head was impacted into position, +0 head was utilized. The trial reduction was stable in all degrees of rotation with no [id number] impingement. The hip was dislocated. The trial components were removed and the final femoral stem, neck, and femoral head combination were assembled on the back table and impacted into position. Hip was relocated. Range of motion checked once again successful and the wound was irrigated. The pyriformis repaired to the greater trochanter using #1 Vicryl [id number] suture. A Hemovac drain was placed and the fascia was closed using #1 Vicryl, subcutaneous tissue was closed using 0 Dexon, and skin was closed with luis. Sterile dressing of Adaptic, 4 x 4's, ABDs, and foam tape was applied. The patient tolerated the procedure well. Due to the complex nature of the procedure, the entire surgery was performed with the operational assistance of Jesus Morris PA-C. The retail assistant, under direct supervision, was involved in the actual performance of all aspects of the surgical procedure including hemostasis, tissue retraction and incision, instrument management, patient positioning, and wound closure.
== END 2017-02-21 12:50 | disposition home or self-care (01) | DRG 470 ==
LOC: C.ACU 06:50 → C.3E 08:00 → ENRESERV 10:44
PROC: 0SR90JZ Replacement of Right Hip Joint with Synthetic Substitute, Open Approach (ICD-10-PCS; principal; 2017-02-20 09:15)
DX: M16.11 Unilateral primary osteoarthritis, right hip (principal); I12.9 Hypertensive chronic kidney disease with stage 1 through stage 4 chronic kidney disease, or unspecified chronic kidney disease; N18.3 Chronic kidney disease, stage 3 (moderate); D63.1 Anemia in chronic kidney disease; K21.9 Gastro-esophageal reflux disease without esophagitis; M10.9 Gout, unspecified; Z96.642 Presence of left artificial hip joint; Z87.891 Personal history of nicotine dependence; Z79.82 Long term (current) use of aspirin; Z79.891 Long term (current) use of opiate analgesic; Z79.899 Other long term (current) drug therapy